=== PATIENT | female | born 1935 | race Caucasian/White ===

== ENCOUNTER 2017-09-15 02:25 | Emergency (ER) | payer MEDICARE, OTHER ==
[~2017-09-15] VITALS: Ht 154.9 cm; Wt 53.8 kg
[~2017-09-15 02:25] MED LIST: ACET325T38 PO; AMLO5TAB4 PO; AMOX-358 PO; ASPI-586 PO; ATEN25TA PO; CLOP75TA69 PO; DOCU-143 PO; LISI40TA PO; PANT40SU PO; SIMV10TA PO
--- OUTSIDE RECORDS SUMMARY | 2017-09-15 02:31 | XMS REPORT | Continuity of Care Document ---
Author Author [facility] Organization [facility] Address Unknown Phone Unavailable Allergies Active Description Code Type Severity Reaction Onset Reported/Identified Relationship to Patient Clinical Status Yes No Known Drug Allergies [id number] Drug Allergy Unknown N/A 05/06/2016 Yes sulfamethoxazole [id number] Drug Allergy Unknown N/A 07/09/2017 Yes tramadol [id number] Drug Allergy Unknown N/A 07/09/2017 Yes trimethoprim [id number] Drug Allergy Unknown N/A 07/09/2017 Medications There is no data. Problems Date Dx Coded Attending Type Code Diagnosis Diagnosed By 08/23/2015 RUTH NORWOOD MD Ot M25.511 PAIN IN RIGHT SHOULDER 08/23/2015 RUTH NORWOOD MD Ot S70.01XA CONTUSION OF RIGHT HIP, INITIAL ENCOUNTE 08/23/2015 RUTH NORWOOD MD Ot S76.911A STRAIN OF UNSP MUSC/FASC/TEND AT THI LEV 08/23/2015 RUTH NORWOOD MD Ot W01.0XXA FALL SAME LEV FROM SLIP/TRIP W/O STRIKE 08/23/2015 RUTH NORWOOD MD Ot Y92.[address] PENIT[address]ARY PLACE 08/23/2015 RUTH NORWOOD MD Ot Y99.8 OTHER EXTERNAL CAUSE STATUS 05/10/2016 REBECCA EDMONDS DO Ot E78.0 PURE HYPERCHOLESTEROLEMIA 05/10/2016 REBECCA EDMONDS DO Ot I10 ESSENTIAL (PRIMARY) HYPERTENSION 05/10/2016 REBECCA EDMONDS DO Ot I25.10 ATHSCL HEART DISEASE OF [place] CORONARY 05/10/2016 REBECCA EDMONDS DO Ot I25.2 OLD MYOCARDIAL INFARCTION 05/10/2016 REBECCA EDMONDS DO Ot J18.9 PNEUMONIA, UNSPECIFIED ORGANISM 05/10/2016 REBECCA EDMONDS DO Ot K21.9 GASTRO-ESOPHAGEAL REFLUX DISEASE WITHOUT 05/10/2016 REBECCA EDMONDS DO Ot R09.02 HYPOXEMIA 05/10/2016 REBECCA EDMONDS DO Ot Z66 DO NOT RESUSCITATE 05/10/2016 REBECCA EDMONDS DO Ot Z86.73 PRSNL HX OF TIA (TIA), AND CEREB INFRC W 05/10/2016 REBECCA EDMONDS DO Ot Z95.1 PRESENCE OF AORTOCORONARY BYPASS GRAFT 05/10/2016 REBECCA EDMONDS DO Ot Z95.5 PRESENCE OF CORONARY ANGIOPLASTY IMPLANT 07/09/2017 SCOTT HARO Ot E78.00 PURE HYPERCHOLESTEROLEMIA, UNSPECIFIED 07/09/2017 SCOTT HARO Ot I10 ESSENTIAL (PRIMARY) HYPERTENSION 07/09/2017 SCOTT HARO Ot I25.2 OLD MYOCARDIAL INFARCTION 07/09/2017 SCOTT HARO Ot K21.9 GASTRO-ESOPHAGEAL REFLUX DISEASE WITHOUT 07/09/2017 SCOTT HARO Ot M19.90 UNSPECIFIED OSTEOARTHRITIS, UNSPECIFIED 07/09/2017 SCOTT HARO Ot S01.112A LACERATION W/O FB OF LEFT EYELID AND PER 07/09/2017 SCOTT HARO Ot S01.81XA LACERATION W/O FOREIGN BODY OF OTH PART 07/09/2017 SCOTT HARO Ot S09.90XA UNSPECIFIED INJURY OF HEAD, INITIAL ENCO 07/09/2017 SCOTT HARO Ot W05.0XXA FALL FROM NON-MOVING WHEELCHAIR, INITIAL 07/09/2017 SCOTT HARO Ot Z79.82 RESIDENTIAL (CURRENT) USE OF ASPIRIN 07/09/2017 SCOTT HARO Ot Z82.49 FAMILY HX OF ISCHEM HEART DIS AND OTH DI 07/09/2017 SCOTT HARO Ot Z86.73 PRSNL HX OF TIA (TIA), AND CEREB INFRC W 07/09/2017 SCOTT HARO Ot Z87.19 PERSONAL HISTORY OF OTHER DISEASES OF TH 07/09/2017 SCOTT HARO Ot Z95.1 PRESENCE OF AORTOCORONARY BYPASS GRAFT Procedures There is no data. Results Test Result Range Complete blood count (CBC) with automated white blood cell (WBC) differential - 05/06/16 18:50 Blood leukocytes automated count (number/volume) 7.8 10*3/uL 4.3-11.0 Blood erythrocytes automated count (number/volume) 4.98 10*6/uL 4.35-5.85 Venous blood hemoglobin measurement (mass/volume) 14.8 g/dL 11.5-16.0 Blood hematocrit (volume fraction) 44 % 35-52 Automated erythrocyte mean corpuscular volume 89 [foz_us] 80-99 Automated erythrocyte mean corpuscular hemoglobin (mass per erythrocyte) 30 pg 25-34 Automated erythrocyte mean corpuscular hemoglobin concentration measurement ( mass/volume) 33 g/dL 32-36 Automated erythrocyte distribution width ratio 13.6 % 10.0-14.5 Automated blood platelet count (count/volume) 274 10*3/uL 130-400 Automated blood platelet mean volume measurement 10.9 [foz_us] 7.4-10.4 Automated blood neutrophils/100 leukocytes 60 % 42-75 Automated blood lymphocytes/100 leukocytes 29 % 12-44 Blood monocytes/100 leukocytes 9 % 0-12 Automated blood eosinophils/100 leukocytes 1 % 0-10 Automated blood basophils/100 leukocytes 1 % 0-10 Blood neutrophils automated count (number/volume) 4.7 10*3 1.8-7.8 Blood lymphocytes automated count (number/volume) 2.3 10*3 1.0-4.0 Blood monocytes automated count (number/volume) 0.7 10*3 0.0-1.0 Automated eosinophil count 0.1 10*3/uL 0.0-0.3 Automated blood basophil count (count/volume) 0.1 10*3/uL 0.0-0.1 Comprehensive metabolic panel - 05/06/16 18:50 Serum or plasma sodium measurement (moles/volume) 135 mmol/L 135-145 Serum or plasma potassium measurement (moles/volume) 3.9 mmol/L 3.6-5.0 Serum or plasma chloride measurement (moles/volume) 99 mmol/L 98-107 Carbon dioxide 23 mmol/L 21-32 Serum or plasma anion gap determination (moles/volume) 13 mmol/L 5-14 Serum or plasma urea nitrogen measurement (mass/volume) 21 mg/dL 7-18 Serum or plasma creatinine measurement (mass/volume) 0.80 mg/dL 0.60-1.30 Serum or plasma urea nitrogen/creatinine mass ratio 26 NRG Serum or plasma creatinine measurement with calculation of estimated glomerular filtration rate > NRG Serum or plasma glucose measurement (mass/volume) 118 mg/dL 70-105 Serum or plasma calcium measurement (mass/volume) 9.1 mg/dL 8.5-10.1 Serum or plasma total bilirubin measurement (mass/volume) 0.4 mg/dL 0.1-1.0 Serum or plasma alkaline phosphatase measurement (enzymatic activity/volume) 165 U/L 40-136 Serum or plasma aspartate aminotransferase measurement (enzymatic activity/ volume) 18 U/L 5-34 Serum or plasma alanine aminotransferase measurement (enzymatic activity/volume ) 13 U/L 0-55 Serum or plasma protein measurement (mass/volume) 7.6 g/dL 6.4-8.2 Serum or plasma albumin measurement (mass/volume) 3.6 g/dL 3.2-4.5 Magnesium - 05/06/16 18:50 Magnesium 2.0 mg/dL 1.8-2.4 Serum or plasma lithium measurement (moles/volume) - 05/06/16 18:50 BNP level 592.8 pg/mL <100.0 Serum or plasma troponin i.cardiac measurement (mass/volume) - 05/06/16 18:50 Serum or plasma troponin i.cardiac measurement (mass/volume) < ng/ mL <0.30 Fibrin D-dimer FEU measurement in platelet poor plasma (mass/volume) - 18:50 Fibrin D-dimer FEU measurement in platelet poor plasma (mass/volume) 0.71 ug/mL 0.00-0.49 Blood lactic acid measurement (moles/volume) - 05/06/16 18:50 Blood lactic acid measurement (moles/volume) 1.3 mmol/L 0.5-2.0 Bacterial blood culture - 05/06/16 18:50 Bacterial blood culture NG NRG Complete urinalysis with reflex to culture - 05/06/16 19:08 Urine color determination YELLOW NRG Urine clarity determination CLEAR NRG Urine pH measurement by test strip 5 5-9 Specific gravity of urine by test strip 1.015 1.016- 1.022 Urine protein assay by test strip, semi-quantitative NEGATIVE NEGATIVE Urine glucose detection by automated test strip NEGATIVE NEGATIVE Erythrocytes detection in urine sediment by light microscopy NEGATIVE NEGATIVE Urine ketones detection by automated test strip NEGATIVE NEGATIVE Urine nitrite detection by test strip NEGATIVE NEGATIVE Urine total bilirubin detection by test strip NEGATIVE NEGATIVE Urine urobilinogen measurement by automated test strip (mass/volume) NORMAL NORMAL Urine leukocyte esterase detection by dipstick NEGATIVE NEGATIVE Automated urine sediment erythrocyte count by microscopy (number/high power field) NONE NRG Automated urine sediment leukocyte count by microscopy (number/high power field ) RARE NRG Bacteria detection in urine sediment by light microscopy NEGATIVE NRG Squamous epithelial cells detection in urine sediment by light microscopy 0-2 NRG Crystals detection in urine sediment by light microscopy NONE NRG Casts detection in urine sediment by light microscopy NONE NRG Mucus detection in urine sediment by light microscopy NEGATIVE NRG Complete urinalysis with reflex to culture NO NRG Bacterial blood culture - 05/06/16 20:59 Bacterial blood culture NG NRG Sputum Gram stain - 05/07/16 02:22 GRAM STAIN SPUTUM AND MIXED BACTERIAL QUIN NRG Bacterial sputum culture - 05/07/16 02:22 Bacterial sputum culture NORMAL NRG Complete blood count (CBC) with automated white blood cell (WBC) differential - 05/08/16 11:00 Blood leukocytes automated count (number/volume) 8.9 10*3/uL 4.3-11.0 Blood erythrocytes automated count (number/volume) 4.37 10*6/uL 4.35-5.85 Venous blood hemoglobin measurement (mass/volume) 13.0 g/dL 11.5-16.0 Blood hematocrit (volume fraction) 39 % 35-52 Automated erythrocyte mean corpuscular volume 88 [foz_us] 80-99 Automated erythrocyte mean corpuscular hemoglobin (mass per erythrocyte) 30 pg 25-34 Automated erythrocyte mean corpuscular hemoglobin concentration measurement ( mass/volume) 34 g/dL 32-36 Automated erythrocyte distribution width ratio 13.6 % 10.0-14.5 Automated blood platelet count (count/volume) 208 10*3/uL 130-400 Automated blood platelet mean volume measurement 10.8 [foz_us] 7.4-10.4 Automated blood neutrophils/100 leukocytes 72 % 42-75 Automated blood lymphocytes/100 leukocytes 13 % 12-44 Blood monocytes/100 leukocytes 7 % 0-12 Automated blood eosinophils/100 leukocytes 8 % 0-10 Automated blood basophils/100 leukocytes 0 % 0-10 Blood neutrophils automated count (number/volume) 6.4 10*3 1.8-7.8 Blood lymphocytes automated count (number/volume) 1.1 10*3 1.0-4.0 Blood monocytes automated count (number/volume) 0.6 10*3 0.0-1.0 Automated eosinophil count 0.7 10*3/uL 0.0-0.3 Automated blood basophil count (count/volume) 0.0 10*3/uL 0.0-0.1 Whole blood basic metabolic panel - 05/08/16 11:00 Serum or plasma sodium measurement (moles/volume) 138 mmol/L 135-145 Serum or plasma potassium measurement (moles/volume) 2.9 mmol/L 3.6-5.0 Serum or plasma chloride measurement (moles/volume) 104 mmol/L 98-107 Carbon dioxide 19 mmol/L 21-32 Serum or plasma anion gap determination (moles/volume) 15 mmol/L 5-14 Serum or plasma urea nitrogen measurement (mass/volume) 21 mg/dL 7-18 Serum or plasma creatinine measurement (mass/volume) 0.98 mg/dL 0.60-1.30 Serum or plasma urea nitrogen/creatinine mass ratio 21 NRG Serum or plasma creatinine measurement with calculation of estimated glomerular filtration rate 54 NRG Serum or plasma glucose measurement (mass/volume) 78 mg/dL 70-105 Serum or plasma calcium measurement (mass/volume) 8.4 mg/dL 8.5-10.1 Serum or plasma phosphate measurement (mass/volume) - 05/08/16 11:00 Serum or plasma phosphate measurement (mass/volume) 3.8 mg/dL 2.3-4.7 Magnesium - 05/08/16 11:00 Magnesium 1.6 mg/dL 1.8-2.4 Complete blood count (CBC) with automated white blood cell (WBC) differential - 05/09/16 03:43 Blood leukocytes automated count (number/volume) 7.1 10*3/uL 4.3-11.0 Blood erythrocytes automated count (number/volume) 4.45 10*6/uL 4.35-5.85 Venous blood hemoglobin measurement (mass/volume) 13.2 g/dL 11.5-16.0 Blood hematocrit (volume fraction) 39 % 35-52 Automated erythrocyte mean corpuscular volume 88 [foz_us] 80-99 Automated erythrocyte mean corpuscular hemoglobin (mass per erythrocyte) 30 pg 25-34 Automated erythrocyte mean corpuscular hemoglobin concentration measurement ( mass/volume) 34 g/dL 32-36 Automated erythrocyte distribution width ratio 13.5 % 10.0-14.5 Automated blood platelet count (count/volume) 225 10*3/uL 130-400 Automated blood platelet mean volume measurement 10.7 [foz_us] 7.4-10.4 Automated blood neutrophils/100 leukocytes 68 % 42-75 Automated blood lymphocytes/100 leukocytes 14 % 12-44 Blood monocytes/100 leukocytes 8 % 0-12 Automated blood eosinophils/100 leukocytes 11 % 0-10 Automated blood basophils/100 leukocytes 0 % 0-10 Blood neutrophils automated count (number/volume) 4.8 10*3 1.8-7.8 Blood lymphocytes automated count (number/volume) 1.0 10*3 1.0-4.0 Blood monocytes automated count (number/volume) 0.6 10*3 0.0-1.0 Automated eosinophil count 0.8 10*3/uL 0.0-0.3 Automated blood basophil count (count/volume) 0.0 10*3/uL 0.0-0.1 Whole blood basic metabolic panel - 05/09/16 03:43 Serum or plasma sodium measurement (moles/volume) 140 mmol/L 135-145 Serum or plasma potassium measurement (moles/volume) 2.9 mmol/L 3.6-5.0 Serum or plasma chloride measurement (moles/volume) 104 mmol/L 98-107 Carbon dioxide 21 mmol/L 21-32 Serum or plasma anion gap determination (moles/volume) 15 mmol/L 5-14 Serum or plasma urea nitrogen measurement (mass/volume) 16 mg/dL 7-18 Serum or plasma creatinine measurement (mass/volume) 0.82 mg/dL 0.60-1.30 Serum or plasma urea nitrogen/creatinine mass ratio 20 NRG Serum or plasma creatinine measurement with calculation of estimated glomerular filtration rate > NRG Serum or plasma glucose measurement (mass/volume) 70 mg/dL 70-105 Serum or plasma calcium measurement (mass/volume) 7.8 mg/dL 8.5-10.1 Serum or plasma phosphate measurement (mass/volume) - 05/09/16 03:43 Serum or plasma phosphate measurement (mass/volume) 3.0 mg/dL 2.3-4.7 Magnesium - 05/09/16 03:43 Magnesium 1.8 mg/dL 1.8-2.4 Serum or plasma potassium measurement (moles/volume) - 05/09/16 13:50 Serum or plasma potassium measurement (moles/volume) 4.0 mmol/L 3.6-5.0 Complete blood count (CBC) with automated white blood cell (WBC) differential - 07/09/17 14:08 Blood leukocytes automated count (number/volume) 9.4 10*3/uL 4.3-11.0 Blood erythrocytes automated count (number/volume) 5.11 10*6/uL 4.35-5.85 Venous blood hemoglobin measurement (mass/volume) 15.5 g/dL 11.5-16.0 Blood hematocrit (volume fraction) 47 % 35-52 Automated erythrocyte mean corpuscular volume 92 [foz_us] 80-99 Automated erythrocyte mean corpuscular hemoglobin (mass per erythrocyte) 30 pg 25-34 Automated erythrocyte mean corpuscular hemoglobin concentration measurement ( mass/volume) 33 g/dL 32-36 Automated erythrocyte distribution width ratio 14.2 % 10.0-14.5 Automated blood platelet count (count/volume) 270 10*3/uL 130-400 Automated blood platelet mean volume measurement 10.4 [foz_us] 7.4-10.4 Automated blood neutrophils/100 leukocytes 59 % 42-75 Automated blood lymphocytes/100 leukocytes 31 % 12-44 Blood monocytes/100 leukocytes 8 % 0-12 Automated blood eosinophils/100 leukocytes 2 % 0-10 Automated blood basophils/100 leukocytes 0 % 0-10 Blood neutrophils automated count (number/volume) 5.6 10*3 1.8-7.8 Blood lymphocytes automated count (number/volume) 2.9 10*3 1.0-4.0 Blood monocytes automated count (number/volume) 0.8 10*3 0.0-1.0 Automated eosinophil count 0.1 10*3/uL 0.0-0.3 Automated blood basophil count (count/volume) 0.0 10*3/uL 0.0-0.1 Comprehensive metabolic panel - 07/09/17 14:08 Serum or plasma sodium measurement (moles/volume) 137 mmol/L 135-145 Serum or plasma potassium measurement (moles/volume) 4.7 mmol/L 3.6-5.0 Serum or plasma chloride measurement (moles/volume) 101 mmol/L 98-107 Carbon dioxide 22 mmol/L 21-32 Serum or plasma anion gap determination (moles/volume) 14 mmol/L 5-14 Serum or plasma urea nitrogen measurement (mass/volume) 17 mg/dL 7-18 Serum or plasma creatinine measurement (mass/volume) 1.31 mg/dL 0.60-1.30 Serum or plasma urea nitrogen/creatinine mass ratio 13 NRG Serum or plasma creatinine measurement with calculation of estimated glomerular filtration rate 39 NRG Serum or plasma glucose measurement (mass/volume) 133 mg/dL 70-105 Serum or plasma calcium measurement (mass/volume) 9.7 mg/dL 8.5-10.1 Serum or plasma total bilirubin measurement (mass/volume) 0.4 mg/dL 0.1-1.0 Serum or plasma alkaline phosphatase measurement (enzymatic activity/volume) 109 U/L 40-136 Serum or plasma aspartate aminotransferase measurement (enzymatic activity/ volume) 22 U/L 5-34 Serum or plasma alanine aminotransferase measurement (enzymatic activity/volume ) 22 U/L 0-55 Serum or plasma protein measurement (mass/volume) 8.0 g/dL 6.4-8.2 Serum or plasma albumin measurement (mass/volume) 4.2 g/dL 3.2-4.5 Encounters ACCT No. Visit Date/Time Discharge Status Pt. Type Provider Facility Loc./Unit Complaint [id number] 07/09/2017 13:03:00 07/09/2017 14:40:00 DIS Emergency SCOTT HARO [facility] ER FALL [id number] 05/06/2016 20:42:00 05/10/2016 15:30:00 DIS Inpatient REBECCA EDMONDS DO [facility] 4TH DYSPNEA,LOW O2, ELEV BWP , PNEUMONIA PER CT [id number] 08/23/2015 19:22:00 08/23/2015 21:55:00 DIS Emergency CUCO GTZ, RUTH Munguia [facility] ER FALL
[2017-09-15] MEDS ORDERED: POTA10CA43 (02:43)
[2017-09-15] MEDS ORDERED: FURO20TA4 (02:43)
[2017-09-15] MEDS ORDERED: OSEL75CA15 (02:43)
[2017-09-15] MEDS ORDERED: FAMO20TA5 (02:43)
[2017-09-15] MEDS ORDERED: fentaNYL INJECTION 100 MCG/2 ML AMP IVP ONE (03:45)
[2017-09-15 03:50] LABS: BASOPHILS % (AUTO) 0 % (0-10); EOSINOPHILS # (AUTO) 0.1 10^3/uL (0.0-0.3); EOSINOPHILS % (AUTO) 1 % (0-10); HEMATOCRIT 44 % (35-52); HEMOGLOBIN 14.7 G/DL (11.5-16.0); LYMPHOCYTES # (AUTO) 1.9 X 10^3 (1.0-4.0); LYMPHOCYTES % (AUTO) 11 % (12-44); MEAN CORPUSCULAR HEMOGLOBIN 31 PG (25-34); MEAN CORPUSCULAR HGB CONC 33 G/DL (32-36); MEAN CORPUSCULAR VOLUME 92 FL (80-99); MEAN PLATELET VOLUME 10.8 FL (7.4-10.4); MONOCYTES # (AUTO) 0.8 X 10^3 (0.0-1.0); MONOCYTES % (AUTO) 5 % (0-12); NEUTROPHILS # (AUTO) 14.5 X 10^3 (1.8-7.8); NEUTROPHILS % (AUTO) 83 % (42-75); PLATELET COUNT 289 10^3/uL (130-400); RED BLOOD COUNT 4.81 10^6/uL (4.35-5.85); WHITE BLOOD COUNT 17.4 10^3/uL (4.3-11.0)
[2017-09-15 03:51] LABS: BILIRUBIN,URINE NEGATIVE (NEGATIVE); CLARITY,URINE CLEAR; COLOR,URINE YELLOW; GLUCOSE, URINE (UA) NEGATIVE (NEGATIVE); KETONES,URINE NEGATIVE (NEGATIVE); LEUKOCYTE ESTERASE ,URINE 1+ (NEGATIVE); NITRITE,URINE NEGATIVE (NEGATIVE); PH,URINE 6 (5-9); PROTEIN,URINE NEGATIVE (NEGATIVE); UROBILINOGEN,URINE NORMAL (NORMAL)
[2017-09-15 03:56] VITALS: BP 139/94
[2017-09-15 04:01] LABS: BACTERIA,URINE NEGATIVE /HPF
[2017-09-15 04:09] LABS: ALBUMIN 3.3 GM/DL (3.2-4.5); BILIRUBIN,TOTAL 0.8 MG/DL (0.1-1.0); CALCIUM 9.2 MG/DL (8.5-10.1); CREATININE SERUM 0.93 MG/DL (0.60-1.30); POTASSIUM 4.8 MMOL/L (3.6-5.0); TOTAL PROTEIN 6.6 GM/DL (6.4-8.2)
[2017-09-15] MEDS ORDERED: fentaNYL INJECTION 100 MCG/2 ML AMP IVP PRN (04:15)
[2017-09-15 04:25] LABS: BAND NEUTROPHILS 4 %; EOSINOPHILS % (MANUAL) 1 %; LYMPHOCYTES % (MANUAL) 8 %; MONOCYTES % (MANUAL) 3 %; NEUTROPHILS % (MANUAL) 84 %; RBC MORPH NORMAL
--- NOTE | 2017-09-15 04:52 | ED Fall/Injury ---
General Chief Complaint: Laceration Stated Complaint: FELL-HIT HEAD Nursing Triage Note: laceration to left forehead Source: patient, EMS, long term records, caregiver Exam Limitations: no limitations History of Present Illness Time seen by provider: 02:26 Initial Comments This 81-year-old woman presents to the emergency room via [facility] from [facility] in [place] after falling out of her wheelchair and striking her head. She has a stellate laceration on her forehead. It has already scabbed over and is not bleeding. The fall occurred at about 01:20. halfway staff report that patient has had more difficulty ambulating and has been more confused the past few days. She seems more tired than usual. She was started on Tamiflu a couple of days ago empirically. Many of the patient's at the long term were empirically started on prophylactic Tamiflu because of multiple cases of influenza in the long term. He was also noted patient was recently started on prednisone. Outpatient labs and urinalysis have been ordered for today but had not yet been drawn. Patient has had and neck pain but denies any other injuries. She has scattered bruising on the upper extremities, shoulder girdle, abdomen, and lower extremities. She has mild tenderness of the neck and trapezius muscles but no focal joint or bony tenderness. halfway staff reports the patient sometimes uses oxygen because of her COPD. They have needed to use oxygen more often in the past couple of days. Allergies and Home Medications Allergies Coded Allergies: sulfamethoxazole (Verified Allergy, Unknown, 07/09/17) tramadol (Verified Allergy, Unknown, 07/09/17) trimethoprim (Verified Allergy, Unknown, 07/09/17) Home Medications Acetaminophen 325 Mg Tablet, 325 MG PO Q8H PRN for PAIN, (Reported) Amlodipine Besylate 5 Mg Tablet, 5 MG PO DAILY, (Reported) Aspirin 81 Mg Tablet.dr, 81 MG PO DAILY, (Reported) Atenolol 25 Mg Tablet, 25 MG PO DAILY, (Reported) Clopidogrel Bisulfate 75 Mg Tablet, 75 MG PO DAILY, (Reported) Docusate Sodium 100 Mg Capsule, 100 MG PO BID, (Reported) Famotidine 20 Mg Tablet, (Reported) Furosemide 20 Mg Tablet, (Reported) Lisinopril 40 Mg Tablet, 40 MG PO HS, (Reported) Oseltamivir Phosphate 75 Mg Capsule, (Reported) Pantoprazole Sodium 40 Mg Granpkt.dr, 40 MG PO DAILY, (Reported) Potassium Chloride 10 Meq Capsule.er, (Reported) Simvastatin 10 Mg Tablet, 10 MG PO HS, (Reported) Constitutional: see HPI Eyes: No Symptoms Reported Ears, Nose, Mouth, Throat: no symptoms reported Respiratory: see HPI Cardiovascular: no symptoms reported Gastrointestinal: no symptoms reported Genitourinary: no symptoms reported Musculoskeletal: no symptoms reported Skin: see HPI Psychiatric/Neurological: See HPI Past Xgyjbad-Pubutp-Dmisuo Hx Patient Social History Alcohol Use: Denies Use Recreational Drug Use: No Smoking Status: Unknown if Ever Smoked 2nd Hand Smoke Exposure: No Recent Foreign Travel: No Contact w/Someone Who Travel: No Recent Infectious Disease Expo: No Recent Hopitalizations: No Immunizations Up To Date Tetanus Booster (TDap): Less than 5yrs PED Vaccines UTD: Yes Seasonal Allergies Seasonal Allergies: Yes Surgeries History of Surgeries: Yes (RIGHT SHOULDER ) Surgeries: CABG, Orthopedic Respiratory History of Respiratory Disorde: No Currently Using CPAP: No Currently Using BIPAP: No Cardiovascular History of Cardiac Disorders: Yes (8 cardiac stents ) Cardiac Disorders: Heart Attack, High Cholesterol, Hypertension Neurological History of Neurological Disord: Yes Neurological Disorders: TIA Reproductive System Hx Reproductive Disorders: No Sexually Transmitted Disease: No HIV/AIDS: No Female Reproductive Disorders: Denies Gastrointestinal History of Gastrointestinal Di: Yes Gastrointestinal Disorders: Gastroesophageal Reflux, Chronic Constipation, Hemorrhoids Musculoskeletal History of Musculoskeletal Dis: Yes (SHOULDER/NECK PAIN) Musculoskeletal Disorders: Arthritis Endocrine History of Endocrine Disorders: No HEENT History of HEENT Disorders: Yes Hearing Impairment: Hard of Hearing Cancer History of Cancer: No Psychosocial History of Psychiatric Problem: No Integumentary History of Skin or Integumenta: No Blood Transfusions History of Blood Disorders: No Adverse Reaction to a Blood Tr: No Family Medical History Significant Family History: No Pertinent Family Hx Family Medial History: Cardiovascular disease 19 FATHER Coronary thrombosis 19 FATHER Hypertension 19 FATHER Physical Exam Vital Signs Vital Sign - Last 12Hours 09/15/17 02:45 Temp 97.8 Pulse 82 Resp 16 B/P (MAP) 104/69 (81) Pulse Ox 95 O2 Delivery Nasal Cannula O2 Flow Rate 2.00 Capillary Refill : Less Than 3 Seconds General Appearance: WD/WN, mild distress HEENT: PERRL/EOMI, TMs normal, pharynx normal, other (stellate laceration over the left forehead that has already scabbed and is no longer bleeding. Ecchymosis and swelling surrounding the laceration.) Neck: tender lateral, tender midline, other (ecchymosis noted at the base of the neck and along the shoulder girdle. Ecchymosis is mostly located over the trapezius muscles) Cardiovascular: regular rate, rhythm, no edema, no murmur Respiratory: lungs clear, normal breath sounds, no respiratory distress, no accessory muscle use Gastrointestinal: normal bowel sounds, non tender, soft Back: normal inspection Extremities: non-tender, normal inspection, no pedal edema Neurologic/Psychiatric: no motor/sensory deficits, alert, other (mildly agitated) Skin: normal color, warm/dry, ecchymosis Malini Coma Score Best Eye Response: (4) Open Spontaneously Best Verbal Response: (5) Oriented Best Motor Response: (6) Obeys Commands [place] Total: 15 Progress/Results/Core Measures Results/Orders Lab Results Laboratory Tests Test 09/15/17 03:40 09/15/17 03:45 Range/Units White Blood Count 17.4 H 4.3-11.0 10^3/uL Red Blood Count 4.81 4.35-5.85 10^6/uL Hemoglobin 14.7 11.5-16.0 G/DL Hematocrit 44 35-52 % Mean Corpuscular Volume 92 80-99 FL Mean Corpuscular Hemoglobin 31 25-34 PG Mean Corpuscular Hemoglobin Concent 33 32-36 G/DL Red Cell Distribution Width 15.0 H 10.0-14.5 % Platelet Count 289 130-400 10^3/uL Mean Platelet Volume 10.8 H 7.4-10.4 FL Neutrophils (%) (Auto) 83 H 42-75 % Lymphocytes (%) (Auto) 11 L 12-44 % Monocytes (%) (Auto) 5 0-12 % Eosinophils (%) (Auto) 1 0-10 % Basophils (%) (Auto) 0 0-10 % Neutrophils # (Auto) 14.5 H 1.8-7.8 X 10^3 Lymphocytes # (Auto) 1.9 1.0-4.0 X 10^3 Monocytes # (Auto) 0.8 0.0-1.0 X 10^3 Eosinophils # (Auto) 0.1 0.0-0.3 10^3/uL Basophils # (Auto) 0.0 0.0-0.1 10^3/uL Neutrophils % (Manual) 84 % Lymphocytes % (Manual) 8 % Monocytes % (Manual) 3 % Eosinophils % (Manual) 1 % Band Neutrophils 4 % Blood Morphology Comment NORMAL Sodium Level 141 135-145 MMOL/L Potassium Level 4.8 3.6-5.0 MMOL/L Chloride Level 100 98-107 MMOL/L Carbon Dioxide Level 27 21-32 MMOL/L Anion Gap 14 5-14 MMOL/L Blood Urea Nitrogen 26 H 7-18 MG/DL Creatinine 0.93 0.60-1.30 MG/DL Estimat Glomerular Filtration Rate 58 BUN/Creatinine Ratio 28 Glucose Level 111 H 70-105 MG/DL Calcium Level 9.2 8.5-10.1 MG/DL Total Bilirubin 0.8 0.1-1.0 MG/DL Aspartate Amino Transf (AST/SGOT) 18 5-34 U/L Alanine Aminotransferase (ALT/SGPT) 27 0-55 U/L Alkaline Phosphatase 116 40-136 U/L Total Protein 6.6 6.4-8.2 GM/DL Albumin 3.3 3.2-4.5 GM/DL Urine Color YELLOW Urine Clarity CLEAR Urine pH 6 5-9 Urine Specific [place] 1.015 L 1.016-1.022 Urine Protein NEGATIVE NEGATIVE Urine Glucose (UA) NEGATIVE NEGATIVE Urine Ketones NEGATIVE NEGATIVE Urine Nitrite NEGATIVE NEGATIVE Urine Bilirubin NEGATIVE NEGATIVE Urine Urobilinogen NORMAL NORMAL MG/DL Urine Leukocyte Esterase 1+ H NEGATIVE Urine RBC (Auto) NEGATIVE NEGATIVE Urine RBC NONE /HPF Urine WBC NONE /HPF Urine Squamous Epithelial Cells 2-5 /HPF Urine Crystals NONE /LPF Urine Bacteria NEGATIVE /HPF Urine Casts PRESENT /LPF Urine Hyaline Casts 2-5 H /LPF Urine Mucus NEGATIVE /LPF Urine Culture Indicated NO My Orders Orders - KRISTI GRANDE MD Ct Head/Cervical Spine Wo (09/15/17 02:50) Chest 1 View, Ap/Pa Only (09/15/17 03:15) Saline Lock/Iv-Start (09/15/17 03:19) Cbc With Automated Diff (09/15/17 03:19) Comprehensive Metabolic Panel (09/15/17 03:19) Ua Culture If Indicated (09/15/17 03:19) Fentanyl Injection (Sublimaze Injection (09/15/17 03:45) Manual Differential (09/15/17 03:40) Fentanyl Injection (Sublimaze Injection (09/15/17 04:15) Medications Given in ED Current Medications Medications Dose Ordered Sig/Mateusz Route Start Time Stop Time Status Last Admin Dose Admin Fentanyl Citrate 12.5 mcg ONCE ONCE IVP 09/15/17 03:45 09/15/17 03:46 DC 09/15/17 03:49 12.5 MCG Fentanyl Citrate 25 mcg ONCE PRN IVP 09/15/17 04:15 09/15/17 04:11 25 MCG Vital Signs/I&O Vital Sign - Last 12Hours 09/15/17 09/15/17 09/15/17 02:45 03:49 03:56 Temp 97.8 97.8 Pulse 82 78 Resp 16 16 B/P (MAP) 104/69 (81) 139/94 (109) Pulse Ox 95 96 O2 Delivery Nasal Cannula Nasal Cannula O2 Flow Rate 2.00 2.00 2.00 Blood Pressure Mean: 109 Progress Note : Progress Note During assessment patient complained of neck pain although she did not complain of neck pain to EMS. C-collar was applied. Patient did not tolerate c-collar very well. Fentanyl was given to help manage pain. CT of the head and C-spine was obtained and was unremarkable. C-collar was removed. Chest x-ray showed no acute findings. Labs and urinalysis were pursued and showed no significant abnormalities. Patient was ultimately discharged home. Patient was up-to-date on tetanus booster from a prior visit to the hospital. Diagnostic Imaging Diagonstic Imaging: Xray Plain Films/CT/US/NM/MRI: chest Comments Chest x-ray viewed by me. Report not yet available. No acute abnormalities appreciated. Diagonstic Imaging: CT Plain Films/CT/US/NM/MRI: c-spine, head Comments CT head and C-spine viewed by me and stat rad report reviewed. No acute bony injuries or intracranial injuries identified. Departure Impression Impression: Primary Impression: Fall on same level Qualified Codes: W18.30XA - Fall on same level, unspecified, initial encounter Additional Impressions: Laceration of forehead Qualified Codes: S01.81XA - Laceration without foreign body of other part of head, initial encounter Neck pain Multiple contusions Disposition: HOME, SELF-CARE Condition: Improved Departure-Patient Inst. Decision time for Depature: 04:40 Referrals: GERMAINE BURGESS MD (PCP/Family) Primary Care Physician Patient Instructions: Contusion (DC) Add. Discharge Instructions: Follow-up with the primary care provider team within the next 48 hours. Return to care if symptoms worsen. All discharge instructions reviewed with patient and/or family. Voiced understanding. KRISTI GRANDE MD Sep 15, 2017 04:52
[2017-09-15 05:55] VITALS: BP 124/88
--- NOTE | 2017-09-15 06:17 | Diagnostic Imaging Report ---
PROCEDURE: CT head and CT cervical spine without contrast. TECHNIQUE: Multiple contiguous axial images were obtained through the brain and cervical spine without the use of intravenous contrast. Sagittal and coronal reformations through the cervical spine were then performed. INDICATION: Fall with laceration to forehead with confusion, dementia and neck pain. No prior examinations are available for comparison. FINDINGS: There is prominence of ventricles and sulci. There is some chronic microvascular ischemic disease. There is no hydrocephalus. There is no midline shift. There is no intracranial mass, hemorrhage or extra-axial fluid collection. The calvarium is intact. Sinuses and mastoid air cells are clear. The alignment of cervical spine is grossly normal. Vertebral body heights are well-maintained. The prevertebral soft tissues are within normal limits. There is no fracture or traumatic subluxation. The odontoid is intact and lateral masses are well aligned. There is multilevel degenerative disc disease with some posterior facet arthropathy. There is some biapical pleural thickening or scarring. IMPRESSION: No acute intracranial abnormality. There is atrophy and moderate chronic microvascular ischemic disease. Moderate cervical spondylosis and degenerative disc disease without acute fracture or traumatic subluxation. Dictated by: Dictated on workstation # [id number]
--- NOTE | 2017-09-15 07:32 | Diagnostic Imaging Report ---
INDICATION: Cough. FINDINGS: There is cardiomegaly. There has been previous median sternotomy and coronary bypass graft. There is no pleural effusion or pneumothorax. Mediastinum is unremarkable. IMPRESSION: Cardiomegaly. No other acute cardiopulmonary abnormality. Dictated by: Dictated on workstation # [id number]
== END 2017-09-15 05:54 | disposition home or self-care (01) ==
LOC: EDUNIT# 02:25 → ER 02:26
DX: S01.81XA Laceration without foreign body of other part of head, initial encounter (principal); S10.93XA Contusion of unspecified part of neck, initial encounter; J44.9 Chronic obstructive pulmonary disease, unspecified; I25.2 Old myocardial infarction; E78.00 Pure hypercholesterolemia, unspecified; I10 Essential (primary) hypertension; K21.9 Gastro-esophageal reflux disease without esophagitis; Z87.19 Personal history of other diseases of the digestive system; Z86.73 Personal history of transient ischemic attack (TIA), and cerebral infarction without residual deficits; Z79.82 Long term (current) use of aspirin; Z95.1 Presence of aortocoronary bypass graft; Z82.49 Family history of ischemic heart disease and other diseases of the circulatory system; W05.0XXA Fall from non-moving wheelchair, initial encounter; W22.09XA Striking against other stationary object, initial encounter
CPT/HCPCS: 36415; 70450; 71045; 72125; 80053; 81000; 85007; 85027

== ENCOUNTER 2017-09-21 13:57 | Inpatient (IN) | payer MEDICARE, OTHER ==
[~2017-09-21] VITALS: Ht 160 cm; Wt 63.5 kg
[~2017-09-21 13:57] MED LIST changes: +FAMO20TA5 PO; +FURO20TA4; +OSEL75CA15; +POTA10CA43
--- OUTSIDE RECORDS SUMMARY | 2017-09-21 14:03 | XMS REPORT | Continuity of Care Document ---
Author Author [facility] Organization [facility] Address Unknown Phone Unavailable Allergies Active Description Code Type Severity Reaction Onset Reported/Identified Relationship to Patient Clinical Status Yes No Known Drug Allergies [id number] Drug Allergy Unknown N/A 05/06/2016 Yes sulfamethoxazole [id number] Drug Allergy Unknown N/A 07/09/2017 Yes tramadol [id number] Drug Allergy Unknown N/A 07/09/2017 Yes trimethoprim [id number] Drug Allergy Unknown N/A 07/09/2017 Medications There [...] NORWOOD MD Ot Y92.[address] [facility] [address] 08/23/2015 RUTH NORWOOD MD Ot Y99.8 OTHER EXTERNAL CAUSE STATUS 05/10/2016 REBECCA EDMONDS DO Ot E78.0 PURE HYPERCHOLESTEROLEMIA 05/10/2016 REBECCA EDMONDS DO Ot I10 ESSENTIAL (PRIMARY) HYPERTENSION 05/10/2016 REBECCA EDMONDS DO Ot I25.10 ATHSCL HEART DISEASE OF [place] CORONARY 05/10/2016 REBECCA EDMONDS DO Ot I25.2 [...] WHEELCHAIR, INITIAL 07/09/2017 SCOTT HARO Ot Z79.82 [facility] (CURRENT) USE OF ASPIRIN 07/09/2017 SCOTT HARO [...] plasma albumin measurement (mass/volume) 4.2 g/dL 3.2-4.5 Complete blood count (CBC) with automated white blood cell (WBC) differential - 09/15/17 03:40 Blood leukocytes automated count (number/volume) 17.4 10*3/uL 4.3-11.0 Blood erythrocytes automated count (number/volume) 4.81 10*6/uL 4.35-5.85 Venous blood hemoglobin measurement (mass/volume) 14.7 g/dL 11.5-16.0 Blood hematocrit (volume fraction) 44 % 35-52 Automated erythrocyte mean corpuscular volume 92 [foz_us] 80-99 Automated erythrocyte mean corpuscular hemoglobin (mass per erythrocyte) 31 pg 25-34 Automated erythrocyte mean corpuscular hemoglobin concentration measurement ( mass/volume) 33 g/dL 32-36 Automated erythrocyte distribution width ratio 15.0 % 10.0-14.5 Automated blood platelet count (count/volume) 289 10*3/uL 130-400 Automated blood platelet mean volume measurement 10.8 [foz_us] 7.4-10.4 Automated blood neutrophils/100 leukocytes 83 % 42-75 Automated blood lymphocytes/100 leukocytes 11 % 12-44 Blood monocytes/100 leukocytes 5 % 0-12 Automated blood eosinophils/100 leukocytes 1 % 0-10 Automated blood basophils/100 leukocytes 0 % 0-10 Blood neutrophils automated count (number/volume) 14.5 10*3 1.8-7.8 Blood lymphocytes automated count (number/volume) 1.9 10*3 1.0-4.0 Blood monocytes automated count (number/volume) 0.8 10*3 0.0-1.0 Automated eosinophil count 0.1 10*3/uL 0.0-0.3 Automated blood basophil count (count/volume) 0.0 10*3/uL 0.0-0.1 Comprehensive metabolic panel - 09/15/17 03:40 Serum or plasma sodium measurement (moles/volume) 141 mmol/L 135-145 Serum or plasma potassium measurement (moles/volume) 4.8 mmol/L 3.6-5.0 Serum or plasma chloride measurement (moles/volume) 100 mmol/L 98-107 Carbon dioxide 27 mmol/L 21-32 Serum or plasma anion gap determination (moles/volume) 14 mmol/L 5-14 Serum or plasma urea nitrogen measurement (mass/volume) 26 mg/dL 7-18 Serum or plasma creatinine measurement (mass/volume) 0.93 mg/dL 0.60-1.30 Serum or plasma urea nitrogen/creatinine mass ratio 28 NRG Serum or plasma creatinine measurement with calculation of estimated glomerular filtration rate 58 NRG Serum or plasma glucose measurement (mass/volume) 111 mg/dL 70-105 Serum or plasma calcium measurement (mass/volume) 9.2 mg/dL 8.5-10.1 Serum or plasma total bilirubin measurement (mass/volume) 0.8 mg/dL 0.1-1.0 Serum or plasma alkaline phosphatase measurement (enzymatic activity/volume) 116 U/L 40-136 Serum or plasma aspartate aminotransferase measurement (enzymatic activity/ volume) 18 U/L 5-34 Serum or plasma alanine aminotransferase measurement (enzymatic activity/volume ) 27 U/L 0-55 Serum or plasma protein measurement (mass/volume) 6.6 g/dL 6.4-8.2 Serum or plasma albumin measurement (mass/volume) 3.3 g/dL 3.2-4.5 Blood manual differential performed detection - 09/15/17 03:40 Blood monocytes/100 leukocytes 3 % NRG Manual blood segmented neutrophils/100 leukocytes 84 % NRG Blood band neutrophils/100 leukocytes 4 % NRG Manual blood lymphocytes/100 leukocytes 8 % NRG Manual eosinophils/100 leukocytes in nose 1 % NRG Blood erythrocyte morphology finding identification NORMAL NRG Complete urinalysis with reflex to culture - 09/15/17 03:45 Urine color determination YELLOW NRG Urine clarity determination CLEAR NRG Urine pH measurement by test strip 6 5-9 Specific gravity of urine by test [...] NORMAL Urine leukocyte esterase detection by dipstick 1+ NEGATIVE Automated urine sediment erythrocyte count by microscopy (number/high power field) NONE NRG Automated urine sediment leukocyte count by microscopy (number/high power field ) NONE NRG Bacteria detection in urine sediment by light microscopy NEGATIVE NRG Squamous epithelial cells detection in urine sediment by light microscopy 2-5 NRG Crystals detection in urine sediment by light microscopy NONE NRG Casts detection in urine sediment by light microscopy PRESENT NRG Mucus detection in urine sediment by light microscopy NEGATIVE NRG Complete urinalysis with reflex to culture NO NRG Hyaline casts detection in urine sediment by light microscopy 2-5 NRG Encounters ACCT No. Visit Date/Time Discharge Status Pt. Type Provider Facility Loc./Unit Complaint [id number] 09/15/2017 02:26:00 09/15/2017 05:54:00 DIS Emergency KRISTI GRANDE MD [facility] ER FELL-HIT HEAD [id number] 07/09/2017 13:03:00 07/09/2017 14:40:00 DIS Emergency SCOTT HARO [facility] ER FALL [id number] 05/06/2016 20:42:00 05/10/2016 15:30:00 DIS Inpatient REBECCA EDMONDS DO [facility] 4TH DYSPNEA,LOW O2, ELEV BWP , PNEUMONIA PER CT [id number] 08/23/2015 19:22:00 08/23/2015 21:55:00 DIS Emergency CUCO GTZ, RUTH Munguia [facility] ER FALL
--- NOTE | 2017-09-21 14:36 | Diagnostic Imaging Report ---
INDICATION: Cough. COMPARISON: 09/15/2017 FINDINGS: Upright portable view of the chest is obtained. Heart size is enlarged but unchanged. There is no pulmonary vascular congestion. There is no pneumothorax or mediastinal widening. There are postoperative changes of prior CABG. There is patchy infiltrate at the lung bases bilaterally more prominent on the right new from the prior study. No pleural fluid suspected. There are postoperative changes in the right shoulder. IMPRESSION: New bilateral basilar alveolar opacities likely related to atelectasis or infiltrate. Stable cardiomegaly without evidence of failure. Dictated by: Dictated on workstation # [id number]
[2017-09-21 14:39] LABS: BASOPHILS % (AUTO) 0 % (0-10); EOSINOPHILS # (AUTO) 0.3 10^3/uL (0.0-0.3); EOSINOPHILS % (AUTO) 5 % (0-10); HEMATOCRIT 39 % (35-52); HEMOGLOBIN 13.2 G/DL (11.5-16.0); LYMPHOCYTES # (AUTO) 1.7 X 10^3 (1.0-4.0); LYMPHOCYTES % (AUTO) 28 % (12-44); MEAN CORPUSCULAR HEMOGLOBIN 31 PG (25-34); MEAN CORPUSCULAR HGB CONC 34 G/DL (32-36); MEAN CORPUSCULAR VOLUME 92 FL (80-99); MONOCYTES # (AUTO) 0.6 X 10^3 (0.0-1.0); MONOCYTES % (AUTO) 9 % (0-12); NEUTROPHILS # (AUTO) 3.4 X 10^3 (1.8-7.8); NEUTROPHILS % (AUTO) 58 % (42-75); PLATELET COUNT 266 10^3/uL (130-400); RED BLOOD COUNT 4.21 10^6/uL (4.35-5.85); RED CELL DISTRIBUTION WIDTH 14.7 % (10.0-14.5); WHITE BLOOD COUNT 5.9 10^3/uL (4.3-11.0)
--- NOTE | 2017-09-21 14:40 | ED Cough/URI ---
General Chief Complaint: Respiratory Problems Stated Complaint: PNEUMONIA Nursing Triage Note: PT FROM [facility] IN [place], PT HAS FAILED OUTPATIENT TX FOR PNEM PT HAS BEEN GETTING ZITHROMAX AND ROCEPHIN IV. PT ON SAT 98% ON 3L. Source: patient Exam Limitations: no limitations History of Present Illness Date Seen by Provider: Sep 21, 2017 Time Seen by Provider: 14:38 Initial Comments To ER from [facility] in [place] with reports of failure of outpatient therapy for pneumonia. She's been getting Zithromax and Rocephin IV. Cough and fevers and malaise continue. She was here about 2 weeks ago for a fall and hit her head. She had a noncontrast CT of the head that was unremarkable. Timing/Duration: just prior to arrival Severity/Quality: dry cough Associated Symptoms: cough Allergies and Home Medications Allergies Coded Allergies: sulfamethoxazole (Verified Allergy, Unknown, 07/09/17) tramadol (Verified Allergy, Unknown, 07/09/17) trimethoprim (Verified Allergy, Unknown, 07/09/17) Home Medications Acetaminophen 325 Mg Tablet, 325 MG PO Q8H PRN for PAIN, (Reported) Amlodipine Besylate 5 Mg Tablet, 5 MG PO DAILY, (Reported) Aspirin 81 Mg Tablet.dr, 81 MG PO DAILY, (Reported) Atenolol 25 Mg Tablet, 25 MG PO DAILY, (Reported) Clopidogrel Bisulfate 75 Mg Tablet, 75 MG PO DAILY, (Reported) Docusate Sodium 100 Mg Capsule, 100 MG PO BID, (Reported) Famotidine 20 Mg Tablet, (Reported) Furosemide 20 Mg Tablet, (Reported) Lisinopril 40 Mg Tablet, 40 MG PO HS, (Reported) Oseltamivir Phosphate 75 Mg Capsule, (Reported) Pantoprazole Sodium 40 Mg Granpkt.dr, 40 MG PO DAILY, (Reported) Potassium Chloride 10 Meq Capsule.er, (Reported) Simvastatin 10 Mg Tablet, 10 MG PO HS, (Reported) Constitutional: see HPI EENTM: see HPI Respiratory: see HPI, cough Cardiovascular: no symptoms reported Genitourinary: no symptoms reported Musculoskeletal: no symptoms reported Skin: no symptoms reported Psychiatric/Neurological: No Symptoms Reported Past Exuzcpy-Hgiqux-Eldglb Hx Patient Social History 2nd Hand Smoke Exposure: No Recent Foreign Travel: No Contact w/Someone Who Travel: No Recent Infectious Disease Expo: No Recent Hopitalizations: No Immunizations Up To Date Tetanus Booster (TDap): Less than 5yrs PED Vaccines UTD: Yes Seasonal Allergies Seasonal Allergies: Yes Surgeries History of Surgeries: Yes (RIGHT SHOULDER ) Surgeries: CABG, Orthopedic Respiratory History of Respiratory Disorde: No Currently Using CPAP: No Currently Using BIPAP: No Cardiovascular History of Cardiac Disorders: Yes (8 cardiac stents ) Cardiac Disorders: Heart Attack, High Cholesterol, Hypertension Neurological History of Neurological Disord: Yes Neurological Disorders: TIA Reproductive System Hx Reproductive Disorders: No Sexually Transmitted Disease: No HIV/AIDS: No Female Reproductive Disorders: Denies Gastrointestinal History of Gastrointestinal Di: Yes Gastrointestinal Disorders: Gastroesophageal Reflux, Chronic Constipation, Hemorrhoids Musculoskeletal History of Musculoskeletal Dis: Yes (SHOULDER/NECK PAIN) Musculoskeletal Disorders: Arthritis Endocrine History of Endocrine Disorders: No HEENT History of HEENT Disorders: Yes Hearing Impairment: Hard of Hearing Cancer History of Cancer: No Psychosocial History of Psychiatric Problem: No Integumentary History of Skin or Integumenta: No Blood Transfusions History of Blood Disorders: No Adverse Reaction to a Blood Tr: No Family Medical History Significant Family History: No Pertinent Family Hx Family Medial History: Cardiovascular disease 19 FATHER Coronary thrombosis 19 FATHER Hypertension 19 FATHER Physical Exam Vital Signs Vital Sign - Last 12Hours 09/21/17 14:05 Temp 98.4 Pulse 68 Resp 18 B/P (MAP) 152/86 (108) Pulse Ox 98 O2 Delivery Nasal Cannula O2 Flow Rate 3.00 Capillary Refill : Less Than 3 Seconds General Appearance: WD/WN, no apparent distress Eyes: Bilateral Eye Normal Inspection, Bilateral Eye PERRL, Bilateral Eye EOMI HEENT: PERRL/EOMI, normal ENT inspection Neck: non-tender, full range of motion Respiratory: no respiratory distress, no accessory muscle use, crackles ( bilateral lower lobe to right greater than left) Cardiovascular: regular rate, rhythm, no murmur Gastrointestinal: normal bowel sounds, non tender, soft Neurologic/Psychiatric: alert, normal mood/affect, oriented x 3, other (she is alert and oriented to person and place. She states she is here because she still coughing. She knows the time. When asked if she wants to be full code or DO NOT RESUSCITATE she states "I don't know nothing about that".) Skin: normal color, warm/dry Focused Exam Evaluation Lactate Level Laboratory Tests 09/21/17 14:48: Lactic Acid Level 1.75 Lactic Acid Level Laboratory Tests Test 09/21/17 14:48 Lactic Acid Level 1.75 MMOL/L (0.50-2.00) Progress/Results/Core Measures Suspected Sepsis Recent Fever Within 48 Hours: No Infection Criteria Present: None New/Unexplained Altered Menta: No Sepsis Screen: No Definite Risk Sepsis Diagnosis: SIRS Temperature:98.4 Pulse: 68 Respiratory Rate: 18 Laboratory Tests 09/21/17 14:30: White Blood Count 5.9 Blood Pressure 152 /86 Mean: 108 Laboratory Tests 09/21/17 14:48: Lactic Acid Level 1.75 Laboratory Tests 09/21/17 14:30: Creatinine 0.77, Platelet Count 266, Total Bilirubin 0.3 Results/Orders Lab Results Laboratory Tests Test 09/21/17 14:30 09/21/17 14:48 Range/Units White Blood Count 5.9 4.3-11.0 10^3/uL Red Blood Count 4.21 L 4.35-5.85 10^6/uL Hemoglobin 13.2 11.5-16.0 G/DL Hematocrit 39 35-52 % Mean Corpuscular Volume 92 80-99 FL Mean Corpuscular Hemoglobin 31 25-34 PG Mean Corpuscular Hemoglobin Concent 34 32-36 G/DL Red Cell Distribution Width 14.7 H 10.0-14.5 % Platelet Count 266 130-400 10^3/uL Mean Platelet Volume 10.0 7.4-10.4 FL Neutrophils (%) (Auto) 58 42-75 % Lymphocytes (%) (Auto) 28 12-44 % Monocytes (%) (Auto) 9 0-12 % Eosinophils (%) (Auto) 5 0-10 % Basophils (%) (Auto) 0 0-10 % Neutrophils # (Auto) 3.4 1.8-7.8 X 10^3 Lymphocytes # (Auto) 1.7 1.0-4.0 X 10^3 Monocytes # (Auto) 0.6 0.0-1.0 X 10^3 Eosinophils # (Auto) 0.3 0.0-0.3 10^3/uL Basophils # (Auto) 0.0 0.0-0.1 10^3/uL Sodium Level 139 135-145 MMOL/L Potassium Level 3.1 L 3.6-5.0 MMOL/L Chloride Level 104 98-107 MMOL/L Carbon Dioxide Level 24 21-32 MMOL/L Anion Gap 11 5-14 MMOL/L Blood Urea Nitrogen 12 7-18 MG/DL Creatinine 0.77 0.60-1.30 MG/DL Estimat Glomerular Filtration Rate > 60 BUN/Creatinine Ratio 16 Glucose Level 170 H 70-105 MG/DL Calcium Level 8.8 8.5-10.1 MG/DL Total Bilirubin 0.3 0.1-1.0 MG/DL Alanine Aminotransferase (ALT/SGPT) 19 0-55 U/L Alkaline Phosphatase 145 H 40-136 U/L Total Protein 6.1 L 6.4-8.2 GM/DL Albumin 2.8 L 3.2-4.5 GM/DL Lactic Acid Level 1.75 0.50-2.00 MMOL/L Micro Results Microbiology 09/21/17 Influenza Types A,B Antigen ([facility]) - Final, Complete My Orders Orders - MAXIMINO BUCHANAN APRN Cbc With Automated Diff (09/21/17 14:15) Comprehensive Metabolic Panel (09/21/17 14:15) Chest 1 View, Ap/Pa Only (09/21/17 14:15) Blood Culture (09/21/17 14:15) Lactic Acid Analyzer (09/21/17 14:15) Saline Lock/Iv-Start (09/21/17 14:15) Influenza A And B Antigens (09/21/17 14:43) Piperacillin Sodium/Tazobactam (Zosyn Vi (09/21/17 15:00) Ua Culture If Indicated (09/21/17 14:49) Vital Signs/I&O Vital Sign - Last 12Hours 09/21/17 14:05 Temp 98.4 Pulse 68 Resp 18 B/P (MAP) 152/86 (108) Pulse Ox 98 O2 Delivery Nasal Cannula O2 Flow Rate 3.00 Capillary Refill : Less Than 3 Seconds Blood Pressure Mean: 108 Departure Communication (Admissions) Time/Spoke to Admitting Phy: 15:[address] Wright. We'll admit patient, vancomycin and Zosyn Progress Notes She is 100% on 3 L of oxygen without respiratory distress Impression Impression: Primary Impression: Pneumonia of both lower lobes Disposition: ADMITTED INPATIENT Condition: Stable Admissions Decision to Admit Reason: Admit from ER (General) Decision to Admit/Date: Sep 21, 2017 Time/Decision to Admit Time: 14:40 Departure-Patient Inst. Referrals: GERMAINE BURGESS MD (PCP/Family) Primary Care Physician MAXIMINO BUCHANAN APRN Sep 21, 2017 14:40
[2017-09-21 14:59] LABS: ALANINE AMINOTRANSFERASE 19 U/L (0-55); ALBUMIN 2.8 GM/DL (3.2-4.5); ALKALINE PHOSPHATASE 145 U/L (40-136); BILIRUBIN,TOTAL 0.3 MG/DL (0.1-1.0); BUN/CREATININE RATIO 16; CALCIUM 8.8 MG/DL (8.5-10.1); CARBON DIOXIDE 24 MMOL/L (21-32); CHLORIDE 104 MMOL/L (98-107); CREATININE SERUM 0.77 MG/DL (0.60-1.30); GFR ESTIMATED > 60; GLUCOSE 170 MG/DL (70-105); POTASSIUM 3.1 MMOL/L (3.6-5.0); SODIUM 139 MMOL/L (135-145); TOTAL PROTEIN 6.1 GM/DL (6.4-8.2)
[2017-09-21] MEDS ORDERED: PIPERACILLIN SODIUM/TAZOBACTAM 4.5 GM in NS (IVPB) 100 ML IV ONE (15:00)
--- OUTSIDE RECORDS SUMMARY | 2017-09-21 15:28 | XMS REPORT | Continuity of Care Document ---
Author Author [facility] Organization [facility] Address Unknown Phone Unavailable Allergies Active Description Code Type Severity Reaction Onset Reported/Identified Relationship to Patient Clinical Status Yes No Known Drug Allergies [id number] Drug Allergy Unknown N/A 05/06/2016 Yes sulfamethoxazole [id number] Drug Allergy Unknown N/A 07/09/2017 Yes tramadol [id number] Drug Allergy Unknown N/A 07/09/2017 Yes trimethoprim [id number] Drug Allergy Unknown N/A 07/09/2017 Medications There is no data. Problems Date Dx Coded Attending Type Code Diagnosis Diagnosed By 08/23/2015 RUTH NORWOOD MD Ot M25.511 PAIN IN RIGHT SHOULDER 08/23/2015 RTUH NORWOOD MD Ot S70.01XA CONTUSION OF RIGHT HIP, INITIAL ENCOUNTE 08/23/2015 RUTH NORWOOD MD Ot S76.911A STRAIN OF UNSP MUSC/FASC/TEND AT THI LEV 08/23/2015 RUTH NORWOOD MD Ot W01.0XXA FALL SAME LEV FROM SLIP/TRIP W/O STRIKE 08/23/2015 RUTH NORWOOD MD Ot Y92.[address] IN LONGTERM PLACE 08/23/2015 RUTH NORWOOD MD Ot Y99.8 OTHER EXTERNAL CAUSE STATUS 05/10/2016 REBECCA EDMONDS DO Ot E78.0 PURE HYPERCHOLESTEROLEMIA 05/10/2016 REBECCA EDMONDS DO Ot I10 ESSENTIAL (PRIMARY) HYPERTENSION 05/10/2016 REBECCA EDMONDS DO Ot I25.10 ATHSCL HEART DISEASE OF [place] CORONARY 05/10/2016 REBECCA EDMONDS DO Ot I25.2 [...] WHEELCHAIR, INITIAL 07/09/2017 SCOTT HARO Ot Z79.82 GROUP HOME (CURRENT) USE OF ASPIRIN 07/09/2017 SCOTT HARO [...] urine sediment by light microscopy 2-5 NRG Influenza virus A and B antigen detection - 09/21/17 14:10 FLU RESULT NEGATIVE FOR INFLUENZA A AND B ANTIGENS BY IA NRG Complete blood count (CBC) with automated white blood cell (WBC) differential - 09/21/17 14:30 Blood leukocytes automated count (number/volume) 5.9 10*3/uL 4.3-11.0 Blood erythrocytes automated count (number/volume) 4.21 10*6/uL 4.35-5.85 Venous blood hemoglobin measurement (mass/volume) 13.2 g/dL 11.5-16.0 Blood hematocrit (volume fraction) 39 % 35-52 Automated erythrocyte mean corpuscular volume 92 [foz_us] 80-99 Automated erythrocyte mean corpuscular hemoglobin (mass per erythrocyte) 31 pg 25-34 Automated erythrocyte mean corpuscular hemoglobin concentration measurement ( mass/volume) 34 g/dL 32-36 Automated erythrocyte distribution width ratio 14.7 % 10.0-14.5 Automated blood platelet count (count/volume) 266 10*3/uL 130-400 Automated blood platelet mean volume measurement 10.0 [foz_us] 7.4-10.4 Automated blood neutrophils/100 leukocytes 58 % 42-75 Automated blood lymphocytes/100 leukocytes 28 % 12-44 Blood monocytes/100 leukocytes 9 % 0-12 Automated blood eosinophils/100 leukocytes 5 % 0-10 Automated blood basophils/100 leukocytes 0 % 0-10 Blood neutrophils automated count (number/volume) 3.4 10*3 1.8-7.8 Blood lymphocytes automated count (number/volume) 1.7 10*3 1.0-4.0 Blood monocytes automated count (number/volume) 0.6 10*3 0.0-1.0 Automated eosinophil count 0.3 10*3/uL 0.0-0.3 Automated blood basophil count (count/volume) 0.0 10*3/uL 0.0-0.1 Comprehensive metabolic panel - 09/21/17 14:30 Serum or plasma sodium measurement (moles/volume) 139 mmol/L 135-145 Serum or plasma potassium measurement (moles/volume) 3.1 mmol/L 3.6-5.0 Serum or plasma chloride measurement (moles/volume) 104 mmol/L 98-107 Carbon dioxide 24 mmol/L 21-32 Serum or plasma anion gap determination (moles/volume) 11 mmol/L 5-14 Serum or plasma urea nitrogen measurement (mass/volume) 12 mg/dL 7-18 Serum or plasma creatinine measurement (mass/volume) 0.77 mg/dL 0.60-1.30 Serum or plasma urea nitrogen/creatinine mass ratio 16 NRG Serum or plasma creatinine measurement with calculation of estimated glomerular filtration rate > NRG Serum or plasma glucose measurement (mass/volume) 170 mg/dL 70-105 Serum or plasma calcium measurement (mass/volume) 8.8 mg/dL 8.5-10.1 Serum or plasma total bilirubin measurement (mass/volume) 0.3 mg/dL 0.1-1.0 Serum or plasma alkaline phosphatase measurement (enzymatic activity/volume) 145 U/L 40-136 Serum or plasma alanine aminotransferase measurement (enzymatic activity/volume ) 19 U/L 0-55 Serum or plasma protein measurement (mass/volume) 6.1 g/dL 6.4-8.2 Serum or plasma albumin measurement (mass/volume) 2.8 g/dL 3.2-4.5 Blood lactic acid measurement (moles/volume) - 09/21/17 14:48 Blood lactic acid measurement (moles/volume) 1.75 mmol/L 0.50-2.00 Encounters ACCT No. Visit Date/Time Discharge Status Pt. Type Provider Facility Loc./Unit Complaint [id number] 09/15/2017 02:26:00 09/15/2017 05:54:00 DIS Emergency HARJINDER GTZ, KRISTI Villarreal [facility] ER FELL-HIT HEAD [id number] 07/09/2017 13:03:00 07/09/2017 14:40:00 DIS Emergency SCOTT HARO [facility] ER FALL [id number] 05/06/2016 20:42:00 05/10/2016 15:30:00 DIS Inpatient REBECCA EDMONDS DO [facility] 4TH DYSPNEA,LOW O2, ELEV BWP , PNEUMONIA PER CT [id number] 08/23/2015 19:22:00 08/23/2015 21:55:00 DIS Emergency CUCO GTZ, RUTH Munguia [facility] ER FALL [id number] 09/21/2017 14:40:00 Document Registration
[2017-09-21 16:45] VITALS: BP 162/70
[2017-09-21] MEDS ORDERED: RT-ALBUTEROL/IPRATROPIUM 3 ML (DUONEB) VIAL INH PRN (17:15)
[2017-09-21] MEDS ORDERED: VANCOMYCIN 1500 MG/NS 500 ML IVPB IV NR ×2 (17:30)
[2017-09-21] MEDS ORDERED: VANCOMYCIN 1500 MG/NS 500 ML IVPB IV SCH ×2 (18:00)
[2017-09-21] MEDS: NS W/KCL 40 MEQ/L 1,000 ML IV SCH (18:26)
[2017-09-21] MEDS: RT-ALBUTEROL/IPRATROPIUM 3 ML (DUONEB) VIAL INH SCH ×2 (19:30→22:21)
[2017-09-21 20:21] VITALS: BP 109/68
[2017-09-21] MEDS: PIPERACILLIN/TAZOBACTAM 4.5 GM/D5W 100 ML IVPB IV SCH ×2 (21:55)
[2017-09-21 23:25] VITALS: BP 120/68
[2017-09-22] MEDS: RT-ALBUTEROL/IPRATROPIUM 3 ML (DUONEB) VIAL INH SCH ×6 (02:40→21:46)
[2017-09-22 04:30] VITALS: BP 146/78
[2017-09-22] MEDS: PIPERACILLIN/TAZOBACTAM 4.5 GM/D5W 100 ML IVPB IV SCH ×6 (05:05→20:39)
[2017-09-22] MEDS: NS W/KCL 40 MEQ/L 1,000 ML IV SCH ×3 (05:05→15:58)
[2017-09-22 07:35] VITALS: BP 84/78
[2017-09-22] MEDS ORDERED: BISA5TAB8 PO (08:26)
[2017-09-22] MEDS ORDERED: SIMV20TA3 PO (08:26)
[2017-09-22] MEDS ORDERED: CARV3.122 PO (08:26)
[2017-09-22] MEDS ORDERED: FURO40TA4 PO (08:26)
[2017-09-22] MEDS ORDERED: CEFD300C3 PO (08:26)
[2017-09-22] MEDS ORDERED: LISI2.5T PO (08:26)
[2017-09-22] MEDS ORDERED: POTA10CA43 PO (08:26)
[2017-09-22] MEDS ORDERED: MENT118G TP (08:26)
[2017-09-22] MEDS ORDERED: NS IV 1000 ML 1,000 ML IV SCH (10:15)
[2017-09-22] MEDS ORDERED: NS 1000 ML IV BAG IV ONE (10:30)
--- NOTE | 2017-09-22 10:40 | History & Physical-Hospitalist ---
HPI History of Present Illness: HPI/Chief Complaint this is an 81-year-old white female who is brought to the emergency room after having failed outpatient treatment with Rocephin and Zithromax for facility acquired pneumonia. the patient has remained at home with a productive cough for the last 2 weeks despite antibiotic treatments. When asked if she wanted to be on life support she says no answer CODE STATUS will be a DO NOT RESUSCITATE. The patient is a poor historian and her information is obtained primarily from old records. She has been nonambulatory for some time but she doesn't know why. She complains of feeling weak and has frequent urination. Her blood pressure had dropped down into the 80s and on recheck right now is up to about 120. She'll be given some increased fluids at this time for better blood pressure support. There is no evidence of sepsis. Chest x-ray shows bilateral lower lobe infiltrates. Source: patient, old records Exam Limitations: clinical condition Date Seen 09/22/17 Time Seen by Provider: 10:00 Attending Physician Ayse Wright John D MD Referring Physician Date of Admission Sep 21, 2017 at 3:24 pm Home Medications & Allergies Home Medications Reviewed patient Home Medication Reconciliation Form Allergies Allergies Coded Allergies sulfamethoxazole (Verified Allergy, Unknown, 09/21/17) tramadol (Verified Allergy, Unknown, 09/21/17) trimethoprim (Verified Allergy, Unknown, 09/21/17) Past Wgcnoav-Vmrrde-Evlzux Hx Patient Social History Marrital Status: single Employed/Student: retired Alcohol Use: Denies Use Recreational Drug Use: No Smoking Status: Never a Smoker 2nd Hand Smoke Exposure: No Physical Abuse Screen: No Sexual Abuse: No Recent Foreign Travel: No Contact w/other who traveled: No Recent Hopitalizations: No Recent Infectious Disease Expo: No Immunizations Up To Date Tetanus Booster (TDap): Less than 5yrs Pediatric: Yes Date of Pneumonia Vaccine: Sep 29, 2015 Date of Influenza Vaccine: Jun 14, 2017 Seasonal Allergies Seasonal Allergies: Yes Surgeries Yes (RIGHT SHOULDER ) CABG, Orthopedic Respiratory Yes Currently Using CPAP: No Currently Using BIPAP: No Cardiovascular Yes (8 cardiac stents ) Heart Attack, High Cholesterol, Hypertension Neurological Yes TIA Reproductive System Hx Reproductive Disorders: No Sexually Transmitted Disease: No HIV/AIDS: No Female Reproductive Disorders: Denies Genitourinary Yes (INCONTINENT) Gastrointestinal Yes Gastroesophageal Reflux, Chronic Constipation, Hemorrhoids Musculoskeletal Yes (SHOULDER/NECK PAIN) Arthritis Endocrine History of Endocrine Disorders: No HEENT History of HEENT Disorders: Yes Hearing Impairment: Hard of Hearing Cancer No Psychosocial History of Psychiatric Problem: No Integumentary History of Skin or Integumenta: Yes (MULTIPLE WOUNDS) Blood Transfusions History of Blood Disorders: No Adverse Reaction to a Blood Tr: No Family Medical History Significant Family History: No Pertinent Family Hx Family Hx: Cardiovascular disease 19 FATHER Coronary thrombosis 19 FATHER Hypertension 19 FATHER Review of Systems Constitutional: see HPI, weakness EENTM: no symptoms reported Respiratory: cough, short of breath Cardiovascular: no symptoms reported Gastrointestinal: constipation Genitourinary: frequency Musculoskeletal: muscle weakness Skin: no symptoms reported Physical Exam Physical Exam Vital Signs Vital Sign - Last 12Hours 09/21/17 14:05 Temp 98.4 Pulse 68 Resp 18 B/P (MAP) 152/86 (108) Pulse Ox 98 O2 Delivery Nasal Cannula O2 Flow Rate 3.00 Capillary Refill : Less Than 3 SecondsLess Than 3 Seconds General Appearance: Chronically ill HEENT: Other Neck: Limited Range of Motion (poor dentition) Respiratory: Crackles, Decreased Breath Sounds Cardiovascular: Regular Rate, Rhythm, Systolic Murmur Gastrointestinal: Normal Bowel Sounds, Non Tender, Soft Extremity: Other (lower extremities are mottled and she has a 1 cm black eschar on the heel of the left foot) Neurologic/Psychiatric: Alert Skin: Mottled Results Results/Procedures Lab Laboratory Tests 09/21/17 14:30 Assessment/Plan Admission Diagnosis facility acquired pneumonia started on Zosyn and vancomycin Hypotension and dehydration Will increase IV fluids Coronary artery disease status post CABG Pressure ulcer left heel Urinary retention with 900 mL residual we'll place Lyles catheter at this time. DO NOT RESUSCITATE status Copy Copies To 1: GERMAINE BURGESS MD Clinical Quality Measures DVT/VTE Risk/Contraindication: Risk Factor Score Per Nursin RFS Level Per Nursing on Admit: 4+=Very High HAMMAD JANSEN MD Sep 22, 2017 10:40 am
[2017-09-22] MEDS ORDERED: BISACODYL 5 MG (DULCOLAX) TABLET PO PRN (10:45)
[2017-09-22] MEDS ORDERED: ACETAMINOPHEN 325 MG TABLET/CAPLET (TYLENOL) PO PRN (10:45)
[2017-09-22 12:00] VITALS: BP 139/80
[2017-09-22] MEDS ORDERED: CATHETER FLUSH 10 ML SYR IV PRN (13:45)
[2017-09-22] MEDS: ENOXAPARIN 40 MG/0.4 ML (LOVENOX) SYR SC SCH (14:24)
[2017-09-22 15:47] VITALS: BP 166/80
[2017-09-22] MEDS ORDERED: VANCOMYCIN 1 GM/NS 250 ML IVPB IV SCH ×2 (18:00)
[2017-09-22] MEDS: VANCOMYCIN 1 GM/NS 250 ML IVPB IV SCH ×2 (18:13)
--- NOTE | 2017-09-22 18:27 | Wound Care Progress Note ---
Subjective Subjective Subjective/Events-last exam The patient is an 81 year old female with a Stage 2 pressure injury of the L heel. Objective Exam Last Set of Vital Signs Vital Signs Date Time Temp Pulse Resp B/P (MAP) Pulse Ox O2 Delivery O2 Flow Rate FiO2 09/22/17 17:06 98 Nasal Cannula 2.00 09/22/17 15:47 97.3 98 18 166/80 (108) Capillary Refill : Less Than 3 SecondsLess Than 3 Seconds I&O Intake and Output 09/22/17 00:00 Intake Total 1115 ml Balance 1115 ml Intake Oral 400 ml IV Total 715 ml # Voids 2 Daily Weight Change Unsure Unsure Results Lab Microbiology 09/21/17 Blood Culture - Preliminary, Resulted No growth 09/21/17 Influenza Types A,B Antigen ([facility]) - Final, Complete MATTHEW BECKHAM MD Sep 22, 2017 18:26
[2017-09-22 19:37] VITALS: BP 120/59
[2017-09-22] MEDS: SIMvastatin 20 MG (ZOCOR) TAB PO SCH (20:39)
[2017-09-22] MEDS: FAMOTIDINE 20 MG (PEPCID) TABLET PO SCH (20:40)
[2017-09-22] MEDS: CARVEDILOL 3.125 MG (COREG) TABLET PO SCH (20:40)
[2017-09-22] MEDS ORDERED: FAMOTIDINE 20 MG (PEPCID) TABLET PO SCH (21:00)
[2017-09-23] VITALS: BP 143/70
[2017-09-23] MEDS: RT-ALBUTEROL/IPRATROPIUM 3 ML (DUONEB) VIAL INH SCH ×6 (02:26→22:32)
[2017-09-23 04:20] VITALS: BP 143/76
[2017-09-23] MEDS: PIPERACILLIN/TAZOBACTAM 4.5 GM/D5W 100 ML IVPB IV SCH ×6 (05:12→21:11)
[2017-09-23] MEDS: KCL 10 MEQ TAB (MICRO K) PO SCH (05:12)
[2017-09-23 05:56] LABS: BASOPHILS % (AUTO) 0 % (0-10); EOSINOPHILS # (AUTO) 0.2 10^3/uL (0.0-0.3); EOSINOPHILS % (AUTO) 4 % (0-10); HEMATOCRIT 36 % (35-52); HEMOGLOBIN 12.2 G/DL (11.5-16.0); LYMPHOCYTES # (AUTO) 1.6 X 10^3 (1.0-4.0); LYMPHOCYTES % (AUTO) 28 % (12-44); MEAN CORPUSCULAR HEMOGLOBIN 31 PG (25-34); MEAN CORPUSCULAR HGB CONC 34 G/DL (32-36); MEAN CORPUSCULAR VOLUME 92 FL (80-99); MEAN PLATELET VOLUME 9.9 FL (7.4-10.4); MONOCYTES # (AUTO) 0.5 X 10^3 (0.0-1.0); MONOCYTES % (AUTO) 9 % (0-12); NEUTROPHILS # (AUTO) 3.3 X 10^3 (1.8-7.8); NEUTROPHILS % (AUTO) 59 % (42-75); PLATELET COUNT 269 10^3/uL (130-400); RED BLOOD COUNT 3.92 10^6/uL (4.35-5.85); RED CELL DISTRIBUTION WIDTH 14.8 % (10.0-14.5); WHITE BLOOD COUNT 5.6 10^3/uL (4.3-11.0)
[2017-09-23 06:33] LABS: ALANINE AMINOTRANSFERASE 13 U/L (0-55); ALBUMIN 2.5 GM/DL (3.2-4.5); ALKALINE PHOSPHATASE 125 U/L (40-136); BILIRUBIN,TOTAL 0.4 MG/DL (0.1-1.0); BUN/CREATININE RATIO 10; CALCIUM 8.1 MG/DL (8.5-10.1); CARBON DIOXIDE 20 MMOL/L (21-32); CHLORIDE 111 MMOL/L (98-107); GFR ESTIMATED > 60; GLUCOSE 89 MG/DL (70-105); MAGNESIUM 1.5 MG/DL (1.8-2.4); POTASSIUM 4.7 MMOL/L (3.6-5.0); SODIUM 140 MMOL/L (135-145); TOTAL PROTEIN 5.5 GM/DL (6.4-8.2)
[2017-09-23 08:00] VITALS: BP 156/77
[2017-09-23] MEDS ORDERED: NON-FORMULARY MEDICATION 1 EA EA (Lisinopril 2.5 MG) PO SCH (09:00)
[2017-09-23] MEDS ORDERED: NON-FORMULARY MEDICATION 1 EA EA (Potassium Chloride 10 MEQ) PO SCH (09:00)
[2017-09-23] MEDS: ASPIRIN E.C. 81 MG (ECOTRIN) TAB PO SCH (09:16)
[2017-09-23] MEDS: lisINopril 5 MG (PRINIVIL) TABLET PO SCH (09:16)
[2017-09-23] MEDS: NS W/KCL 40 MEQ/L 1,000 ML IV SCH (09:16)
[2017-09-23] MEDS: CLOPIDOGREL 75 MG (PLAVIX) TABLET PO SCH (09:16)
[2017-09-23] MEDS: CARVEDILOL 3.125 MG (COREG) TABLET PO SCH ×2 (09:16→21:11)
[2017-09-23] MEDS ORDERED: FUROSEMIDE 40 MG/4 ML INJ (LASIX) IVP NR (10:45)
--- NOTE | 2017-09-23 11:02 | Diagnostic Imaging Report ---
Indication: Shortness of breath Comparison: 09/21/2017 Findings: Upright portable view of the chest is obtained. There are postoperative changes in the mediastinum. Heart size is stable. There is no central venous congestion. No pneumothorax. There are increasing alveolar opacities and pleural effusions at the lung bases bilaterally. Impression: Adverse interval change with increasing airspace disease and pleural fluid at the lung bases bilaterally. Persistent cardiomegaly. Dictated by: Dictated on workstation # [id number]
--- NOTE | 2017-09-23 11:05 | Progress Note-Hospitalist ---
Subjective HPI/CC On Admission Date Seen by Provider: Sep 23, 2017 Time Seen by Provider: 10:50 this is an 81-year-old white female who is brought to the emergency room after having failed outpatient treatment with Rocephin and Zithromax for facility acquired pneumonia. the patient has remained at home with a productive cough for the last 2 weeks despite antibiotic treatments. When asked if she wanted to be on life support she says no answer CODE STATUS will be a DO NOT RESUSCITATE. The patient is a poor historian and her information is obtained primarily from old records. She has been nonambulatory for some time but she doesn't know why. She complains of feeling weak and has frequent urination. Her blood pressure had dropped down into the 80s and on recheck right now is up to about 120. She'll be given some increased fluids at this time for better blood pressure support. There is no evidence of sepsis. Chest x-ray shows bilateral lower lobe infiltrates. Subjective/Events-last exam and seems to be a little bit more short of breath although she does not complain of it. She notes that her feet are cold. BNP is up to 2000. Chest x- ray shows increasing bilateral lobe infiltrates that are more consistent with edema. Because of suspected sepsis she was given aggressive IV fluid hydration. Review of Systems Pulmonary: Dyspnea Objective Exam Vital Signs Vital Sign - Last 12Hours 09/21/17 09/23/17 14:05 09:40 Temp 98.4 Pulse 68 Resp 18 B/P (MAP) 152/86 (108) Pulse Ox 98 O2 Delivery Nasal Cannula O2 Flow Rate 3.00 FiO2 94 Capillary Refill : Less Than 3 SecondsLess Than 3 Seconds General Appearance: Chronically ill Neck: Limited Range of Motion Respiratory: Crackles, Decreased Breath Sounds Cardiovascular: Tachycardia Gastrointestinal: Soft Results/Procedures Lab Laboratory Tests 09/23/17 05:36 Assessment/Plan Assessment and Plan Assess & Plan/Chief Complaint facility acquired pneumonia started on Zosyn and vancomycin-day number 2 Hypotension and dehydration-now with fluid overload will Hep-Lock IV fluids and give Lasix Coronary artery disease status post CABG Pressure ulcer left heel-appreciate Dr. Queen's help Urinary retention with [address] Lyles catheter at this time. DO NOT RESUSCITATE status hypomagnesemia-we'll replace HAMMAD JANSEN MD Sep 23, 2017 11:05
[2017-09-23] MEDS: ENOXAPARIN 40 MG/0.4 ML (LOVENOX) SYR SC SCH (11:07)
[2017-09-23] MEDS: MAGNESIUM 1 GM/100 ML IVPB 100 ML IV SCH ×2 (11:07→13:13)
[2017-09-23] MEDS: POVIDONE (BETADINE) 10% SOLN 240 ML BTL TOP SCH ×2 (11:11→21:11)
[2017-09-23 12:00] VITALS: BP 145/67
[2017-09-23 15:32] VITALS: BP 133/70
[2017-09-23] MEDS ORDERED: TROUGH ORDER-PHARMACY XX NR (16:00)
[2017-09-23] MEDS: VANCOMYCIN 1 GM/NS 250 ML IVPB IV SCH ×2 (18:21)
[2017-09-23 20:34] VITALS: BP 125/72
[2017-09-23] MEDS: SIMvastatin 20 MG (ZOCOR) TAB PO SCH (21:11)
[2017-09-23] MEDS: FAMOTIDINE 20 MG (PEPCID) TABLET PO SCH (21:11)
[2017-09-24] VITALS (7 sets, daily range): BP systolic 101–147; BP diastolic 52–67
[2017-09-24] MEDS: RT-ALBUTEROL/IPRATROPIUM 3 ML (DUONEB) VIAL INH SCH ×6 (02:31→23:16)
[2017-09-24] MEDS: KCL 10 MEQ TAB (MICRO K) PO SCH (05:15)
[2017-09-24] MEDS: PIPERACILLIN/TAZOBACTAM 4.5 GM/D5W 100 ML IVPB IV SCH ×6 (05:15→20:58)
[2017-09-24 07:29] LABS: BASOPHILS % (AUTO) 0 % (0-10); EOSINOPHILS # (AUTO) 0.2 10^3/uL (0.0-0.3); EOSINOPHILS % (AUTO) 1 % (0-10); HEMATOCRIT 37 % (35-52); HEMOGLOBIN 12.4 G/DL (11.5-16.0); LYMPHOCYTES # (AUTO) 1.9 X 10^3 (1.0-4.0); LYMPHOCYTES % (AUTO) 16 % (12-44); MEAN CORPUSCULAR HEMOGLOBIN 31 PG (25-34); MEAN CORPUSCULAR HGB CONC 33 G/DL (32-36); MEAN CORPUSCULAR VOLUME 92 FL (80-99); MEAN PLATELET VOLUME 9.8 FL (7.4-10.4); MONOCYTES # (AUTO) 0.6 X 10^3 (0.0-1.0); MONOCYTES % (AUTO) 5 % (0-12); NEUTROPHILS # (AUTO) 9.5 X 10^3 (1.8-7.8); NEUTROPHILS % (AUTO) 78 % (42-75); PLATELET COUNT 261 10^3/uL (130-400); RED BLOOD COUNT 4.04 10^6/uL (4.35-5.85); RED CELL DISTRIBUTION WIDTH 14.7 % (10.0-14.5); WHITE BLOOD COUNT 12.2 10^3/uL (4.3-11.0)
[2017-09-24 07:50] LABS: ALANINE AMINOTRANSFERASE 15 U/L (0-55); ALBUMIN 2.6 GM/DL (3.2-4.5); ALKALINE PHOSPHATASE 131 U/L (40-136); BILIRUBIN,TOTAL 0.4 MG/DL (0.1-1.0); BUN/CREATININE RATIO 15; CALCIUM 8.5 MG/DL (8.5-10.1); CARBON DIOXIDE 25 MMOL/L (21-32); CHLORIDE 105 MMOL/L (98-107); CREATININE SERUM 0.73 MG/DL (0.60-1.30); GFR ESTIMATED > 60; GLUCOSE 118 MG/DL (70-105); POTASSIUM 4.3 MMOL/L (3.6-5.0); SODIUM 141 MMOL/L (135-145); TOTAL PROTEIN 5.8 GM/DL (6.4-8.2)
[2017-09-24] MEDS: CARVEDILOL 3.125 MG (COREG) TABLET PO SCH ×2 (09:10→20:59)
[2017-09-24] MEDS: CLOPIDOGREL 75 MG (PLAVIX) TABLET PO SCH (09:10)
[2017-09-24] MEDS: lisINopril 5 MG (PRINIVIL) TABLET PO SCH (09:10)
[2017-09-24] MEDS: ASPIRIN E.C. 81 MG (ECOTRIN) TAB PO SCH (09:10)
[2017-09-24] MEDS: POVIDONE (BETADINE) 10% SOLN 240 ML BTL TOP SCH ×2 (09:10→20:59)
[2017-09-24] MEDS: ENOXAPARIN 40 MG/0.4 ML (LOVENOX) SYR SC SCH (11:11)
--- NOTE | 2017-09-24 12:59 | Progress Note-Hospitalist ---
Subjective HPI/CC On Admission Date Seen by Provider: Sep 24, 2017 Time Seen by Provider: 12:45 this is an 81-year-old white female who is brought to the emergency room after having failed outpatient treatment with Rocephin and Zithromax for facility acquired pneumonia. the patient has remained at home with a productive cough for the last 2 weeks despite antibiotic treatments. When asked if she wanted to be on life support she says no answer CODE STATUS will be a DO NOT RESUSCITATE. The patient is a poor historian and her information is obtained primarily from old records. She has been nonambulatory for some time but she doesn't know why. She complains of feeling weak and has frequent urination. Her blood pressure had dropped down into the 80s and on recheck right now is up to about 120. She'll be given some increased fluids at this time for better blood pressure support. There is no evidence of sepsis. Chest x-ray shows bilateral lower lobe infiltrates. Subjective/Events-last exam patient seems to be breathing much more easily and is off oxygen now. She put out approximately 4 L of urine from the Lasix yesterday. BNP is down but is still 2000 Review of Systems Neurological: Weakness Objective Exam Vital Signs Vital Sign - Last 12Hours 09/21/17 09/23/17 14:05 09:40 Temp 98.4 Pulse 68 Resp 18 B/P (MAP) 152/86 (108) Pulse Ox 98 O2 Delivery Nasal Cannula O2 Flow Rate 3.00 FiO2 94 Capillary Refill : Less Than 3 SecondsLess Than 3 Seconds General Appearance: No Apparent Distress, WD/WN, Chronically ill Respiratory: Lungs Clear, No Accessory Muscle Use, No Respiratory Distress Cardiovascular: Regular Rate, Rhythm, Systolic Murmur Gastrointestinal: Soft Extremity: No Pedal Edema Neurologic/Psychiatric: Alert, Disoriented x3 Skin: Normal Color Results/Procedures Lab Laboratory Tests 09/24/17 07:09 Assessment/Plan Assessment and Plan Assess & Plan/Chief Complaint facility acquired pneumonia started on Zosyn and vancomycin-day number 3 Hypotension and dehydration-resolved now with fluid overload will Hep-Lock IV fluids and give Lasix Coronary artery disease status post CABG congestive heart failure with a depressed ejection fraction of 40-45 percent in 2016, currently decompensated we'll recheck an echo Pressure ulcer left heel-appreciate Dr. Queen's help Urinary retention with [address] Lyles catheter at this time- Will DC Lyles catheter and see how she does DO NOT RESUSCITATE status hypomagnesemia-we'll replace HAMMAD JANSEN MD Sep 24, 2017 12:59
[2017-09-24] MEDS: VANCOMYCIN 1 GM/NS 250 ML IVPB IV SCH ×2 (17:54)
[2017-09-24] MEDS: SIMvastatin 20 MG (ZOCOR) TAB PO SCH (20:59)
[2017-09-24] MEDS: FAMOTIDINE 20 MG (PEPCID) TABLET PO SCH (20:59)
[2017-09-25 00:40] VITALS: BP 106/57
[2017-09-25] MEDS: RT-ALBUTEROL/IPRATROPIUM 3 ML (DUONEB) VIAL INH SCH ×5 (02:52→21:42)
[2017-09-25 04:35] VITALS: BP 120/79
[2017-09-25] MEDS: PIPERACILLIN/TAZOBACTAM 4.5 GM/D5W 100 ML IVPB IV SCH ×6 (05:47→20:48)
[2017-09-25] MEDS: KCL 10 MEQ TAB (MICRO K) PO SCH (05:48)
[2017-09-25 07:20] LABS: BUN/CREATININE RATIO 15; CALCIUM 8.5 MG/DL (8.5-10.1); CARBON DIOXIDE 23 MMOL/L (21-32); CHLORIDE 106 MMOL/L (98-107); CREATININE SERUM 0.72 MG/DL (0.60-1.30); GFR ESTIMATED > 60; GLUCOSE 132 MG/DL (70-105); POTASSIUM 3.7 MMOL/L (3.6-5.0); SODIUM 138 MMOL/L (135-145)
[2017-09-25 08:00] VITALS: BP 176/83
[2017-09-25] MEDS: CARVEDILOL 3.125 MG (COREG) TABLET PO SCH ×2 (09:27→20:48)
[2017-09-25] MEDS: CLOPIDOGREL 75 MG (PLAVIX) TABLET PO SCH (09:27)
[2017-09-25] MEDS: lisINopril 5 MG (PRINIVIL) TABLET PO SCH (09:27)
[2017-09-25] MEDS: POVIDONE (BETADINE) 10% SOLN 240 ML BTL TOP SCH ×2 (09:28→22:14)
[2017-09-25] MEDS: ASPIRIN E.C. 81 MG (ECOTRIN) TAB PO SCH (09:28)
--- NOTE | 2017-09-25 10:27 | Progress Note-Hospitalist ---
Standard Progress Note Progress Notes/Assess & Plan Date Seen 09/25/17 Time Seen by Provider: 10:22 Diagnosis facility acquired pneumonia started on Zosyn and vancomycin Hypotension and dehydration Will increase IV fluids Coronary artery disease status post CABG Pressure ulcer left heel Urinary retention with [address] Lyles catheter at this time. DO NOT RESUSCITATE status Assess & Plan/Chief Complaint The patient is an 81-year-old white female from the senior care. She is quite demented. She is apparently nonambulatory. Although she was admitted with a diagnosis of bibasilar pneumonia over a two-week period prior to admission. She in fact did not meet Sirs criteria at admission. Chest x-ray showed a scant bibasilar infiltrate. Subsequently she had a BNP done on the which was 2089. This has declined with the addition of Lasix. Labs Laboratory Tests 09/24/17 07:09 09/25/17 06:30 VANESSA BENAVIDES MD Sep 25, 2017 10:27
--- NOTE | 2017-09-25 11:56 | Progress Note-Hospitalist ---
Standard Progress Note Progress Notes/Assess & Plan Date Seen 09/25/17 Time Seen by Provider: 11:30 Diagnosis facility acquired pneumonia started on Zosyn and vancomycin Hypotension and dehydration Will increase IV fluids Coronary artery disease status post CABG Pressure ulcer left heel Urinary retention with [address] Lyles catheter at this time. DO NOT RESUSCITATE status Assess & Plan/Chief Complaint Chest x-ray showed cardiomegaly and bibasilar alveolar infiltrates. The patient is an 81-year-old white female on hospital day 4. She is sitting up at bedside. She is pleasant but quite confused. She does not know the date or her location. It is noted that she had a temperature of 100.5 on 09/24. This is the maximum during her hospital stay. Her admission white blood count was 5900. B type natriuretic peptide was 2090 on the . After Lasix is 943. She reports no difficulty in breathing. This is not considered to be necessarily reliable. In addition she is nonambulatory. We are awaiting echocardiogram and cardiology consultation. Physical exam: She is pleasant but quite confused. Lungs are clear. Respirations are shallow. CV is regular. Ankles show 1+ pedal edema. No JVD is noted. Impression: Hypoxia, congestive failure versus bibasilar pneumonia. Plan: Continue present medications. Await cardiology consultation. Labs Laboratory Tests 09/24/17 07:09 09/25/17 06:30 VANESSA BENAVIDES MD Sep 25, 2017 11:56
[2017-09-25 12:00] VITALS: BP 131/62
--- NOTE | 2017-09-25 13:14 | Consultation-Cardiology ---
HPI-Cardiology Cardiology Consultation: Date of Consultation 09/25/17 Date of Admission Attending Physician Ayse Wright DO Admitting Physician Adria Correa MD Consulting Physician Rachelle JENSEN MD HPI: Time Seen by Provider: 15:00 Chief Complaint: Shortness of breath This is a 81-year-old lady who is a poor historian. She was being treated as an outpatient for pneumonia however was not improving. She was admitted for worsening shortness of breath and was started on IV antibiotic regimen for hospital acquired pneumonia. She was also performed to have significantly elevated BNP as well as leukocytosis. Bilateral pneumonia was also considered due to bilateral alveolar infiltrates on chest x-ray. Pulmonary edema could not be ruled out. Review of Systems-Cardiology Review of Systems Constitutional: As described under HPI Eyes: No As described under HPI, No no symptoms reported, No blindness, No blurred vision, No contact lenses, No drainage, No decreased acuity, No foreign body sensation, No glasses, No inflammation, No pain, No photophobia, No previous injury, No shadows, No tunnel vision, No other, No vision change Ears/Nose/Throat: No As described under HPI, No no symptoms reported, No chronic hearing loss, No epistaxis, No ear discharge, No ear pain, No loose teeth, No mouth pain, No mouth swelling, No nasal drainage, No nose pain, No recent hearing loss, No throat pain, No throat swelling, No ulcerations, No other Respiratory: cough, orthopnea, shortness of breath Cardiovascular: No no symptoms reported, No As described under HPI, No chest pain, No edema, No irregular heart rate, No lightheadedness, No palpitations, No syncope, No other Gastrointestinal: No no symptoms reported, No As described under HPI, No abdomen distended, No abdominal pain, No blood streaked bowels, No constipation , No diarrhea, No difficulty swallowing, No nausea, No poor appetite, No poor fluid intake, No rectal bleeding, No vomiting, No other, No nausea/vomiting/ diarrhea, No stool coloration changes Genitourinary: No no symptoms reported, No As described under HPI, No burning, No dysuria, No discharge, No frequency, No flank pain, No hematuria, No incontinence, No pain, No urgency, No other, No urine frequency changes, No urine coloration changes Musculoskeletal: No no symptoms reported, No As describe under HPI, No back pain, No gout, No joint pain, No joint swelling, No muscle pain, No muscle stiffness, No neck pain, No other Skin: No no symptoms reported, No As described under HPI, No change in color, No change in hair/nails, No dryness, No lesions, No lumps, No rash, No other, No skin related problems, No ulcerations, No rash on exposed areas, No ulcerations on exposed areas Psychiatric/Neurological: No no symptoms reported, No As described under HPI, No anxiety, No depression, No emotional problems, No headache, No numbness, No pre-existing deficit, No seizure, No tingling, No tremors, No weakness, No other , No focal weakness, No syncope Hematologic: No no symptoms reported, No As described under HPI, No anemia, No blood clots, No easy bleeding, No easy bruising, No swollen glands, No other, No bleeding abnormalities UBJ-Yarwnc-Icamcv Hx Patient Social History Marrital Status: single Employed/Student: retired Alcohol Use: Denies Use Recreational Drug Use: No Smoking Status: Never a Smoker 2nd Hand Smoke Exposure: No Recent Foreign Travel: No Recent Infectious Disease Expo: No Hospitalization with Isolation: Denies Physical Abuse Screen: No Sexual Abuse: No Immunizations Up To Date Tetanus Booster (TDap): Less than 5yrs Date of Pneumonia Vaccine: Sep 29, 2015 Date of Influenza Vaccine: Jun 14, 2017 Past Medical History PMH As described under Assessment. Family Medical History Family History: Cardiovascular disease 19 FATHER Coronary thrombosis 19 FATHER Hypertension 19 FATHER Allergies and Home Medications Allergies Coded Allergies: sulfamethoxazole (Verified Allergy, Unknown, 09/21/17) tramadol (Verified Allergy, Unknown, 09/21/17) trimethoprim (Verified Allergy, Unknown, 09/21/17) Home Medications Acetaminophen 325 Mg Tablet, 650 MG PO Q6H PRN for PAIN-MILD, (Reported) Aspirin 81 Mg Tablet.dr, 81 MG PO DAILY, (Reported) Bisacodyl 5 Mg Tablet.dr, 10 MG PO DAILY PRN for CONSTIPATION-4TH LINE, ( Reported) Carvedilol 3.125 Mg Tablet, 3.125 MG PO BID, (Reported) Cefdinir 300 Mg Capsule, 300 MG PO Q12H for 7 Days, (Reported) 7 DAY THERAPY START DATE 09-21-17 AM Clopidogrel Bisulfate 75 Mg Tablet, 75 MG PO DAILY, (Reported) Famotidine 20 Mg Tablet, 20 MG PO BID, (Reported) Furosemide 40 Mg Tablet, 40 MG PO Q48H, (Reported) Lisinopril 2.5 Mg Tablet, 2.5 MG PO DAILY, (Reported) Menthol 118 Ml Gel..ml., TP TID PRN for NECK PAIN, (Reported) Potassium Chloride 10 Meq Capsule.er, 10 MEQ PO DAILY, (Reported) Simvastatin 20 Mg Tablet, 20 MG PO HS, (Reported) Physical Exam-Cardiology Physical Exam Vital Signs/I&O Vital Sign - Last 12Hours 09/25/17 09/25/17 09/25/17 09/25/17 04:35 07:00 07:26 08:00 Temp 98.1 97.0 Pulse 92 90 90 Resp 17 20 B/P (MAP) 120/79 (93) 176/83 (114) Pulse Ox 99 98 98 O2 Delivery Nasal Cannula Nasal Cannula Nasal Cannula O2 Flow Rate 1.00 1.00 1.00 09/25/17 09/25/17 09/25/17 08:00 12:00 13:00 Temp 97.1 Pulse 77 84 Resp 18 B/P (MAP) 131/62 (85) Pulse Ox 98 98 O2 Delivery Nasal Cannula Nasal Cannula O2 Flow Rate 1.00 1.00 Intake and Output 09/25/17 00:00 Intake Total 1790 ml Output Total 800 ml Balance 990 ml Capillary Refill : Less Than 3 SecondsLess Than 3 Seconds Constitutional: No appears stated age, No AAO x 3, No apparent distress, No PERRL, No well-developed, No well-nourished, No other HEENT: No PERRL, No normal ENT inspection, No TMs normal, No pharynx normal, No scleral icterus (R), No scleral icterus (L), No pale conjunctivae (R), No pale conjunctivae (L), No photophobia, No TM abnormal (R), No TM abnormal (L), No pharyngeal erythema, No tonsillar exudate, No other, No discharge, No EOMI, No hearing is well preserved, No hard of hearing, No oral hygience is good, No ulceration, No xanthelasmas are seen Neck: No non-tender, No full range of motion, No supple, No normal inspection, No carotid bruit, No limited range of motion, No lymphadenopathy (R), No lymphadenopathy (L), No tender lateral, No tender midline, No thyromegaly, No other, No carotid pulses are 2 + bilaterally, No with good upstrokes Respiratory: No accessory muscle use, No respiratory distress, No chest tender , No chest expansion is symmetric, No chest is bilaterally symmetric, No lungs clear to percussion, No lungs clear to auscultation, No crackles, No rhonchi, No rales, No stridor, No wheezing, No pleural rub, No other Cardiovascular: regular rate-rhythm, No irregularly irregular, No extra beats, No parasternal heave is noted, No JVD, No edema, No bradycardia, No tachycardia , No point of maximal impulse, No cardiac thrills are palpable, S1 and S2, No gallop/S3, No gallop/S4, No diastolic murmur, No systolic murmur, No friction rub, No click, No other Gastrointestinal: No tender, No soft, No round, No distended, No pulsatile mass , No organomegaly, No guarding, No rebound, No tenderness, No hernia, No mass, No audible bowel sounds, No abnormal bowel sounds, No abdominal bruits, No spleenomegaly, No other Rectal: deferred Extremities: No normal range of motion, No non-tender, No normal inspection, No pedal edema, No calf tenderness, No normal capillary refill, No pelvis stable , No calf tenderness, No inflammation, No pedal edema, No slow capillary refill , No swelling, No other, No abrasion, No clubbing, No cyanosis, No ecchymosis, No laceration, No no lower extremity edema bilateral, No significant edema, No tenderness, No wound Neurologic/Psychiatric: no motor/sensory deficits, alert, normal mood/affect Skin: No normal color, No warm/dry, No cyanosis, No cool, No diaphoresis, No damp, No ecchymosis, No jaundice, No mottled, No pallor, No rash, No tattoos/ piercings, No ulcerations, No rash on exposed areas, No ulcerations on exposed areas, No other Data Review Labs Laboratory Tests 09/25/17 06:30: Sodium Level 138, Potassium Level 3.7, Chloride Level 106, Carbon Dioxide Level 23, Anion Gap 9, Blood Urea Nitrogen 11, Creatinine 0.72, Estimat Glomerular Filtration Rate > 60, BUN/Creatinine Ratio 15, Glucose Level 132H, Calcium Level 8.5, B-Type Natriuretic Peptide 943.4H Microbiology 09/21/17 Blood Culture - Preliminary, Resulted No growth 09/21/17 Influenza Types A,B Antigen ([facility]) - Final, Complete ECG Impression ECG Initial ECG Rhythm: Normal Sinus A/P-Cardiology Assessment/Admission Diagnosis Severe pneumonia, leukocytosis, Acute systolic congestive heart failure, Coronary artery disease Plan Severe pneumonia: Continue IV antibiotics for hospital-acquired pneumonia. Defer to primary team. Acute systolic congestive heart failure: Echocardiogram shows worsening of LV EF to 25 percent from previously EF of 45-50 percent in 2016. Significantly elevated BNP which has improved with Lasix IV. Continue Lasix IV. Oxygenation has improved significantly. Chest examination does not show any significant rhonchi. CAD: Continue outpatient medical therapy. Thank you for your consultation. Please call me if you have any questions. Melissa Jensen MD, FACP, FACC, FSCAI, FHRS, CCDS Interventional Cardiology Cardiac Electrophysiology Vascular Medicine and Endovascular Interventions Clinical Quality Measures DVT/VTE Risk/Contraindication: Risk Factor Score Per Nursin RFS Level Per Nursing on Admit: 4+=Very High Rachelle JENSEN MD Sep 25, 2017 1:14 pm
[2017-09-25] MEDS: ENOXAPARIN 40 MG/0.4 ML (LOVENOX) SYR SC SCH (13:44)
--- NOTE | 2017-09-25 17:16 | Wound Care Progress Note ---
Subjective Subjective Subjective/Events-last exam 81 year old female with Stage 2 pressure ulcer of L heel. The eschar has come off. changed to silver alginate dressings. Found at 1705 hrs with boot not in place. Objective Exam Last Set of Vital Signs Vital Signs Date Time Temp Pulse Resp B/P (MAP) Pulse Ox O2 Delivery O2 Flow Rate FiO2 09/25/17 13:00 84 09/25/17 12:00 97.1 18 131/62 (85) 98 Nasal Cannula 1.00 09/24/17 10:13 94 Capillary Refill : Less Than 3 SecondsLess Than 3 Seconds I&O Intake and Output 09/25/17 00:00 Intake Total 2440 ml Output Total 1100 ml Balance 1340 ml Intake Oral 1740 ml IV Total 700 ml Output Urine Total 1100 ml Results Lab Laboratory Tests 09/25/17 06:30: Sodium Level 138, Potassium Level 3.7, Chloride Level 106, Carbon Dioxide Level 23, Anion Gap 9, Blood Urea Nitrogen 11, Creatinine 0.72, Estimat Glomerular Filtration Rate > 60, BUN/Creatinine Ratio 15, Glucose Level 132H, Calcium Level 8.5, B-Type Natriuretic Peptide 943.4H Microbiology 09/21/17 Blood Culture - Preliminary, Resulted No growth 09/21/17 Influenza Types A,B Antigen ([facility]) - Final, Complete MATTHEW BECKHAM MD Sep 25, 2017 17:16
[2017-09-25 17:20] VITALS: BP 137/62
[2017-09-25 20:45] VITALS: BP 135/83
[2017-09-25] MEDS: FAMOTIDINE 20 MG (PEPCID) TABLET PO SCH (20:48)
[2017-09-25] MEDS: SIMvastatin 20 MG (ZOCOR) TAB PO SCH (20:48)
[2017-09-26] VITALS: BP 112/63
[2017-09-26] MEDS: RT-ALBUTEROL/IPRATROPIUM 3 ML (DUONEB) VIAL INH SCH ×2 (03:09→06:48)
[2017-09-26 04:00] VITALS: BP 137/65
[2017-09-26] MEDS: PIPERACILLIN/TAZOBACTAM 4.5 GM/D5W 100 ML IVPB IV SCH ×4 (05:26→13:08)
[2017-09-26] MEDS: KCL 10 MEQ TAB (MICRO K) PO SCH (05:27)
[2017-09-26 08:00] VITALS: BP 133/75
[2017-09-26] MEDS: CARVEDILOL 3.125 MG (COREG) TABLET PO SCH (09:18)
[2017-09-26] MEDS: CLOPIDOGREL 75 MG (PLAVIX) TABLET PO SCH (09:19)
[2017-09-26] MEDS: ASPIRIN E.C. 81 MG (ECOTRIN) TAB PO SCH (09:19)
[2017-09-26] MEDS: lisINopril 5 MG (PRINIVIL) TABLET PO SCH (09:19)
[2017-09-26] MEDS: POVIDONE (BETADINE) 10% SOLN 240 ML BTL TOP SCH (09:20)
[2017-09-26] MEDS ORDERED: FUROSEMIDE 40 MG/4 ML INJ (LASIX) IVP SCH (10:00)
--- NOTE | 2017-09-26 10:00 | Cardiology Progress Note ---
Cardiology SOAP Progress Note Subjective: Poor historian. Objective: I&O/Vital Signs Vital Sign - Last 12Hours 09/26/17 09/26/17 09/26/17 09/26/17 00:00 01:00 03:09 04:00 Temp 97.0 96.9 Pulse 79 84 100 Resp 18 22 B/P (MAP) 112/63 (79) 137/65 (89) Pulse Ox 98 96 95 O2 Delivery Nasal Cannula Nasal Cannula Nasal Cannula O2 Flow Rate 2.00 1.00 2.00 09/26/17 06:48 Pulse Ox 92 O2 Delivery Room Air Intake and Output 09/26/17 00:00 Intake Total 1070 ml Balance 1070 ml Weight (Pounds): 140 Weight (Ounces): 0.0 Weight (Calculated Kilograms): 63.123476 Constitutional: No appears stated age, No AAO x 3, No apparent distress, No PERRL, No well-developed, No well-nourished, No other Respiratory: No accessory muscle use, No respiratory distress, No chest tender , No chest expansion is symmetric, No chest is bilaterally symmetric, No lungs clear to percussion, No lungs clear to auscultation, No crackles, No rhonchi, No rales, No stridor, No wheezing, No pleural rub, No other Cardiovascular: regular rate-rhythm, No irregularly irregular, No extra beats, No parasternal heave is noted, No JVD, No edema, No bradycardia, No tachycardia , No point of maximal impulse, No cardiac thrills are palpable, S1 and S2, No gallop/S3, No gallop/S4, No diastolic murmur, No systolic murmur, No friction rub, No click, No other Gastrointestional: No tender, No soft, No round, No distended, No pulsatile mass, No organomegaly, No guarding, No rebound, No tenderness, No hernia, No mass, No audible bowel sounds, No abnormal bowel sounds, No abdominal bruits, No spleenomegaly, No other Extremities: No normal range of motion, No non-tender, No normal inspection, No pedal edema, No calf tenderness, No normal capillary refill, No pelvis stable , No calf tenderness, No inflammation, No pedal edema, No slow capillary refill , No swelling, No other, No abrasion, No clubbing, No cyanosis, No ecchymosis, No laceration, No no lower extremity edema bilateral, No significant edema, No tenderness, No wound Neurologic/Psychiatric: no motor/sensory deficits, alert, normal mood/affect Skin: No normal color, No warm/dry, No cyanosis, No cool, No diaphoresis, No damp, No ecchymosis, No jaundice, No mottled, No pallor, No rash, No tattoos/ piercings, No ulcerations, No rash on exposed areas, No ulcerations on exposed areas, No other Results/Procedures: Labs Microbiology 09/21/17 Blood Culture - Preliminary, Resulted No growth 09/21/17 Influenza Types A,B Antigen ([facility]) - Final, Complete A/P: Assessment/Dx: Severe pneumonia, leukocytosis, Acute systolic congestive heart failure, Coronary artery disease Plan: Severe pneumonia: Continue IV antibiotics for hospital-acquired pneumonia. Defer to primary team. Acute systolic congestive heart failure: Echocardiogram shows worsening of LV EF to 25 percent from previously EF of 45-50 percent in 2016. Significantly elevated BNP which has improved with Lasix IV. Continue Lasix IV 20 mg. Oxygenation has improved significantly. Chest examination does not show any significant rhonchi. CAD: Continue outpatient medical therapy which includes aspirin, Plavix, beta dave, statin. Thank you for your consultation. Please call me if you have any questions. Melissa Jensen MD, FACP, FACC, FSCAI, FHRS, CCDS Interventional Cardiology Cardiac Electrophysiology Vascular Medicine and Endovascular Interventions Rachelle JENSEN MD Sep 26, 2017 10:00 am
--- NOTE | 2017-09-26 11:30 | Discharge Instructions ---
Discharge Instructions Patient Instructions Patient Instructions: tAKE LASIX 40 MG EVERY DAY instead of every other day. Potassium chloride has been added also to take daily. Chemistry 7 in one week. Oxygen at 2 L by nasal cannula continuously Activity & Diet Discharge Diet: Low Sodium Diet VANESSA BENAVIDES MD Sep 26, 2017 11:30
[2017-09-26] MEDS ORDERED: POTA10TA36 PO (11:34)
--- NOTE | 2017-09-26 11:41 | Progress Note-Hospitalist ---
Standard Progress Note Progress Notes/Assess & Plan Date Seen 09/26/17 Time Seen by Provider: 11:20 Diagnosis facility acquired pneumonia started on Zosyn and vancomycin Hypotension and dehydration Will increase IV fluids Coronary artery disease status post CABG Pressure ulcer left heel Urinary retention with 900 mL [address] we[address] Lyles catheter at this time. DO NOT RESUSCITATE status Assess & Plan/Chief Complaint The patient does not appear as perky today as previously. She is afebrile and is likely is stable and she is going to get. She will be return to [facility] today. Physical exam: Breath sounds are shallow but clear. CV is regular. Ankles show 1+ edema. Impression: Congestive heart failure. Labs Laboratory Tests 09/25/17 06:30 Final Diagnosis 1.congestive heart failure. 2.diffuse left ventricular hypomotility with ejection fraction estimated at 25-30 percent. 3.moderate dementia. 4.multi dimensional non-ambulatory state. VANESSA BENAVIDES MD Sep 26, 2017 11:41
[2017-09-26] MEDS: ENOXAPARIN 40 MG/0.4 ML (LOVENOX) SYR SC SCH (13:08)
[2017-09-26 15:00] VITALS: BP 133/75
== END 2017-09-26 15:30 | DRG 193 ==
LOC: EDUNIT# 13:57 → ER 13:59 → 4TH 15:24
PROVIDERS: ADMIT Internal Medicine; ATTEND Internal Medicine
DX: J18.9 Pneumonia, unspecified organism (principal); I11.0 Hypertensive heart disease with heart failure; I50.21 Acute systolic (congestive) heart failure; R33.9 Retention of urine, unspecified; E86.0 Dehydration; L89.622 Pressure ulcer of left heel, stage 2; I25.10 Atherosclerotic heart disease of native coronary artery without angina pectoris; E83.42 Hypomagnesemia; Z66 Do not resuscitate; I95.9 Hypotension, unspecified; F03.90 Unspecified dementia, unspecified severity, without behavioral disturbance, psychotic disturbance, mood disturbance, and anxiety; J30.2 Other seasonal allergic rhinitis; E78.00 Pure hypercholesterolemia, unspecified; K21.9 Gastro-esophageal reflux disease without esophagitis; K59.09 Other constipation; M19.91 Primary osteoarthritis, unspecified site; H91.90 Unspecified hearing loss, unspecified ear; K64.9 Unspecified hemorrhoids; I25.2 Old myocardial infarction; Z95.1 Presence of aortocoronary bypass graft; Z95.5 Presence of coronary angioplasty implant and graft; Z86.73 Personal history of transient ischemic attack (TIA), and cerebral infarction without residual deficits
CPT/HCPCS: 36415; 71045; 80048; 80053; 80202; 83605; 83735; 83880; 85025; 87040; 87804; 93306; 94640; 94664; 94760; 96365

== ENCOUNTER 2017-10-13 18:54 | Emergency (ER) | payer MEDICARE, OTHER ==
[~2017-10-13] VITALS: Ht 160 cm; Wt 63.5 kg
[~2017-10-13 18:54] MED LIST changes: +BISA5TAB8 PO; +CARV3.122 PO; +CEFD300C3 PO; +FURO40TA4 PO; +LISI2.5T PO; +MENT118G TP; +POTA10CA43 PO; +POTA10TA36 PO; +SIMV20TA3 PO
--- NOTE | 2017-10-13 19:36 | Diagnostic Imaging Report ---
INDICATION: Fall. FINDINGS: A single view of the chest shows mild cardiomegaly with normal vascularity. The lungs are clear. There is no effusion or pneumothorax. There are changes of prior CABG. IMPRESSION: Mild cardiomegaly. Prior CABG. The atelectasis and effusions seen on the prior study from 09/23/2017 have resolved. Dictated by: Dictated on workstation # [id number]
--- NOTE | 2017-10-13 19:38 | Diagnostic Imaging Report ---
INDICATION: Fall. Left elbow laceration. EXAMINATION: Three views of the left elbow were obtained. FINDINGS: No fracture, dislocation or other acute bony abnormality. No joint fluid is evident. IMPRESSION: No acute abnormality is seen. Dictated by: Dictated on workstation # [id number]
--- NOTE | 2017-10-13 19:38 | Diagnostic Imaging Report ---
INDICATION: Fall, bilateral hip pain. 5 views of the pelvis and bilateral hips were obtained. FINDINGS: There is no fracture, dislocation or other acute bony abnormality. There is irregularity of inferior ramus on the right consistent with an old healed fracture. IMPRESSION: No acute abnormality is seen. Dictated by: Dictated on workstation # [id number]
--- NOTE | 2017-10-13 19:50 | Diagnostic Imaging Report ---
PROCEDURE: CT head, face, and cervical spine without contrast. TECHNIQUE: Multiple contiguous axial images were obtained through the head, neck, and facial bones without the use of intravenous contrast. Sagittal and coronal reformations through the cervical spine and facial bones were also performed. INDICATION: Hit head The ventricles are normal in size, shape and position. There is no acute parenchymal hemorrhage, edema or mass. There is no extra-axial mass or hemorrhage. Images through the facial bones show no fracture or other acute bony abnormality. The paranasal sinuses are well aerated. No intraorbital abnormality is seen. There is normal height and alignment of the cervical vertebral bodies. There is disc space narrowing and spondylosis at C5-6 and C6-7. There is mild narrowing of the disc space at C4-5. No central canal encroachment is seen. There is no fracture or other acute abnormality. IMPRESSION: CT of the head, facial bones and cervical spine shows no acute abnormality. The head and C-spine are similar to a prior study from 09/15/2017. Dictated by: Dictated on workstation # [id number]
--- NOTE | 2017-10-13 20:11 | ED Fall/Injury ---
General Chief Complaint: Trauma-Non Activation Stated Complaint: FALL Nursing Triage Note: PT BROUGHT IN BY [facility] FROM [facility] WITH REPORTS OF UNWITNESSED FALL. PT WAS REPORTEDLY SITTING IN HER RECLINER, LEANED OVER TO GET NEWSPAPER AND FELL FACE FIRST ONTO FLOOR. NO OBVIOUS INJURY NOTED AT THIS TIME. Source: patient (LIMITED HISTORIAN), EMS, detention records (ALL PMH IS FROM OLD RECORD) History of Present Illness Date Seen by Provider: Oct 13, 2017 Time Seen by Provider: 18:33 Initial Comments PT ARRIVES VIA [facility] FROM [facility]--+ C-COLLAR IN PLACE. PT HAD UNWITNESSED FALL OUT OR CHAIR-PT REPORTEDLY FELL FACE/HEAD FIRST-- OCCURRED AROUND 1815, PER EMS PT WITH HISTORY OF MULTIPLE FALLS, ESPECIALLY RECENTLY PT DENIES PAIN ANYWHERE NO RELEVANT INFORMATION OBTAINABLE FROM PT Location Injury Occurred: [facility] PCP: DR. BURGESS Allergies and Home Medications Allergies Coded Allergies: sulfamethoxazole (Verified Allergy, Unknown, 09/21/17) tramadol (Verified Allergy, Unknown, 09/21/17) trimethoprim (Verified Allergy, Unknown, 09/21/17) Home Medications Acetaminophen 325 Mg Tablet, 650 MG PO Q6H PRN for PAIN-MILD, (Reported) Aspirin 81 Mg Tablet.dr, 81 MG PO DAILY, (Reported) Bisacodyl 5 Mg Tablet.dr, 10 MG PO DAILY PRN for CONSTIPATION-4TH LINE, ( Reported) Carvedilol 3.125 Mg Tablet, 3.125 MG PO BID, (Reported) Clopidogrel Bisulfate 75 Mg Tablet, 75 MG PO DAILY, (Reported) Famotidine 20 Mg Tablet, 20 MG PO BID, (Reported) Furosemide 40 Mg Tablet, 40 MG PO Q48H, (Reported) Lisinopril 2.5 Mg Tablet, 2.5 MG PO DAILY, (Reported) Menthol 118 Ml Gel..ml., TP TID PRN for NECK PAIN, (Reported) Potassium Chloride 10 Meq Capsule.er, 10 MEQ PO DAILY, (Reported) Potassium Chloride 10 Meq Tab.er.prt, 10 MEQ PO TWICE A DAY, #60 Prescribed by: VANESSA BENAVIDES on 09/26/17 1134 Simvastatin 20 Mg Tablet, 20 MG PO HS, (Reported) Constitutional: other (UNABLE TO OBTAIN RELEVANT INFORMATION FROM PT, BUT SHE DENIES PAIN ANYWHERE) Past Qhjwiue-Wcwzia-Sbwkhm Hx Patient Social History Alcohol Use: Denies Use Recreational Drug Use: No Smoking Status: Never a Smoker 2nd Hand Smoke Exposure: No Recent Foreign Travel: No Contact w/Someone Who Travel: No Recent Infectious Disease Expo: No Recent Hopitalizations: No Immunizations Up To Date Tetanus Booster (TDap): Less than 5yrs PED Vaccines UTD: Yes Date of Pneumonia Vaccine: Sep 29, 2015 Date of Influenza Vaccine: Jun 14, 2017 Seasonal Allergies Seasonal Allergies: Yes Surgeries History of Surgeries: Yes (RIGHT SHOULDER ) Surgeries: CABG, Orthopedic Respiratory History of Respiratory Disorde: Yes (PULMONARY EDEMA) Respiratory Disorders: Pneumonia Currently Using CPAP: No Currently Using BIPAP: No Cardiovascular History of Cardiac Disorders: Yes (8 cardiac stents; CHF ) Cardiac Disorders: Chronic Edema/Swelling, Heart Attack, High Cholesterol, Hypertension Neurological History of Neurological Disord: Yes (DYSPHAGIA, DYSPHASIA) Neurological Disorders: Concussion, TIA Reproductive System Hx Reproductive Disorders: No Sexually Transmitted Disease: No HIV/AIDS: No Female Reproductive Disorders: Denies Genitourinary History of Genitourinary Disor: Yes (INCONTINENT) Genitourinary Disorders: Bladder Infection Gastrointestinal History of Gastrointestinal Di: Yes Gastrointestinal Disorders: Gastroesophageal Reflux, Chronic Constipation, Hemorrhoids Musculoskeletal History of Musculoskeletal Dis: Yes (SHOULDER/NECK PAIN; MINIMALLY AMBULATORY-- GAIT DISTURBANCE; FREQUENT FALLS; GENERALLIZED WEAKNESS) Musculoskeletal Disorders: Arthritis Endocrine History of Endocrine Disorders: No HEENT History of HEENT Disorders: Yes HEENT Disorders: Dysphagia Hearing Impairment: Hard of Hearing Cancer History of Cancer: No Psychosocial History of Psychiatric Problem: Yes Behavioral Health Disorders: Sleep Difficulties, Anxiety, Depression Integumentary History of Skin or Integumenta: Yes (MULTIPLE WOUNDS; PRESSURE ULCER) Blood Transfusions History of Blood Disorders: No Adverse Reaction to a Blood Tr: No Family Medical History Significant Family History: No Pertinent Family Hx Family Medial History: Cardiovascular disease 19 FATHER Coronary thrombosis 19 FATHER Hypertension 19 FATHER Physical Exam Vital Signs Vital Signs - First Documented 10/13/17 18:55 Temp 97.2 Pulse 79 Resp 16 B/P (MAP) 112/80 (91) Pulse Ox 95 O2 Delivery Nasal Cannula O2 Flow Rate 2.00 Capillary Refill : Less Than 3 Seconds General Appearance: WD/WN, no apparent distress, other (CERVICAL COLLAR IN PLACE; PT WITH BILATERAL FOAM HEEL PROTECTORS) HEENT: PERRL/EOMI, normal ENT inspection, TMs normal, other (OLD, NEARLY HEALED BRUISE TO LEFT CHURCH AREA--FADED YELLOW IN COLOR) Neck: other (IN CERVICAL COLLAR, BUT NO APPARENT TENDERNESS) Cardiovascular: no edema, irregularly irregular Respiratory: chest non-tender, normal breath sounds, no respiratory distress Gastrointestinal: non tender, soft Back: no CVA tenderness, no vertebral tenderness Extremities: normal range of motion, non-tender, no pedal edema, normal capillary refill, other (BILATERAL FOOT / HEEL PROTECTORS; MINOR ABRASION LEFT ELBOW. NO BLEEDING. NO BONY TENDERESS.) Neurologic/Psychiatric: presser automatic II-XII nml as tested, no motor/sensory deficits ( GROSSLY INTACT), alert, normal mood/affect, other (SPEECH SLOW AND THICK-TONGUED , REPORTEDLY IS NORMAL FOR PT. ) Skin: normal color, warm/dry Progress/Results/Core Measures Results/Orders My Orders Orders - KATJA RAMOS DO Ct Head/Face/Cervical Wo (10/13/17 19:05) Saline Lock/Iv-Start (10/13/17 19:05) Chest 1 View, Ap/Pa Only (10/13/17 19:05) Pelvis/Viral Hips 5> Views (10/13/17 19:05) Elbow, Left, 3 Views (10/13/17 19:05) Dipht,Pertuss(Acell),Tet Adult (Boostrix (10/13/17 20:15) Lorazepam Injection (Ativan Injection) (10/13/17 20:17) Lorazepam Injection (Ativan Injection) (10/13/17 20:30) Lorazepam Injection (Ativan Injection) (10/13/17 21:30) Medications Given in ED Vital Signs/I&O Vital Sign - Last 12Hours 10/13/17 10/13/17 18:55 22:20 Temp 97.2 97.2 Pulse 79 74 Resp 16 16 B/P (MAP) 112/80 (91) Pulse Ox 95 95 O2 Delivery Nasal Cannula O2 Flow Rate 2.00 2.00 Blood Pressure Mean: 91 Progress Note : Progress Note DURING COURSE OF ER STAY, PT BECAME INCREASINGLY AGITATED, YELLING, ETC. LUCY GHOTRA IS PA FOR DR. BURGESS AND IS FAMILIAR WITH PT AND SHE STATES THIS BEHAVIOR IS VERY NORMAL FOR PT AND STATES PT RECEIVES ANXIOLYTICS WHEN HER BEHAVIOR IS LIKE THIS. Diagnostic Imaging Comments CT HEAD/MAXILLOFACIAL/CERVICAL SPINE CXR--CARDIOMEGALY OTHERWISE NO ACUTE PROCESS XRAYS LEFT ELBOW--NO ACUTE PROCESS XRAYS PELVIS AND BILATERAL HIPS--NO ACUTE PROCESS ALL PER RADIOLOGIST REPORTS @ 2006 Reviewed: Reviewed by Me Departure Impression Impression: Primary Impression: Status post fall Additional Impressions: SKIN TEAR LEFT ELBOW Tunacezuyx-lqgufkcrb-ajjcrhz (DPT) vaccination administered at current visit Disposition: 03 XFER SNF Condition: Stable Departure-Patient Inst. Referrals: GERMAINE BURGESS MD (PCP/Family) Primary Care Physician Patient Instructions: Diphtheria and Tetanus Toxoids, and Acellular Pertussis Vaccine, Preventing Falls in the Older Adult, Wound Care (DC) Add. Discharge Instructions: CONTINUE ALL CURRENT MEDICATIONS FOLLOW UP WITH YOUR DR NEEDED All discharge instructions reviewed with patient and/or family. Voiced understanding. KATJA RAMOS DO Oct 13, 2017 20:11
[2017-10-13] MEDS ORDERED: TETANUS,DIPTH,PERTUSS P/F (BOOSTRIX) 0.5 ML VIAL IM ONE (20:15)
[2017-10-13] MEDS ORDERED: LORazepam INJ 2 MG/ML (ATIVAN) VIAL ONE (20:17)
[2017-10-13] MEDS ORDERED: LORazepam INJ 2 MG/ML (ATIVAN) VIAL IM ONE ×2 (20:30→21:30)
[2017-10-13 22:20] VITALS: BP 118/74
== END 2017-10-13 22:20 ==
LOC: EDUNIT# 18:54 → ER 18:55
DX: S41.102A Unspecified open wound of left upper arm, initial encounter (principal); I25.2 Old myocardial infarction; E78.00 Pure hypercholesterolemia, unspecified; I10 Essential (primary) hypertension; K21.9 Gastro-esophageal reflux disease without esophagitis; Z82.49 Family history of ischemic heart disease and other diseases of the circulatory system; Z23 Encounter for immunization; Z87.19 Personal history of other diseases of the digestive system; Z95.5 Presence of coronary angioplasty implant and graft; Z86.73 Personal history of transient ischemic attack (TIA), and cerebral infarction without residual deficits; Z88.2 Allergy status to sulfonamides; Z88.8 Allergy status to other drugs, medicaments and biological substances; Z79.82 Long term (current) use of aspirin; Z95.1 Presence of aortocoronary bypass graft; Z87.01 Personal history of pneumonia (recurrent); W19.XXXA Unspecified fall, initial encounter
CPT/HCPCS: 70450; 70486; 71045; 72125; 73080; 73523; 96372; 99283